=== PATIENT | male | born 1965 | race Caucasian/White ===

== ENCOUNTER → 2017-01-07 | Outpatient (CLI) | payer MEDICAID ==
[~2017-01-07] MED LIST: GADOXETATE DISODIUM 2.5 MMOL/10 ML ONE; HYDR-3240 PO; ONDA4TAB7 PO
== END | disposition home or self-care (01) ==
LOC: CFH 08:54
PROVIDERS: ATTEND Internal Medicine Gastroenterology
DX: Z12.11 Encounter for screening for malignant neoplasm of colon (principal); R93.8 Abnormal findings on diagnostic imaging of other specified body structures
CPT/HCPCS: 74183; 82565; A9581

== ENCOUNTER 2017-02-25 14:04 | Emergency (ER) | payer MEDICAID ==
[~2017-02-25] VITALS: Ht 175.3 cm; Wt 92.0 kg
[~2017-02-25 14:04] MED LIST changes: -GADOXETATE DISODIUM 2.5 MMOL/10 ML ONE
[2017-02-25] MEDS ORDERED: SODIUM CHLORIDE 0.9% 1,000 ML IV ONE (15:12)
[2017-02-25] MEDS ORDERED: FAMOTIDINE 20 MG/2 ML IVP ONE (15:30)
[2017-02-25] MEDS ORDERED: ONDANSETRON 2MG/ML, 2ML IVPush ONE (15:30)
[2017-02-25] MEDS ORDERED: SODIUM CHLORIDE 0.9% 1,000ML IVBOLUS ONE (15:30)
[2017-02-25] MEDS ORDERED: SODIUM CHLORIDE FLUSH 10ML SYR IVF ONE (15:30)
[2017-02-25 15:48] LABS: ASPARTATE AMINO TRANSFERASE 51 U/L (15-37); BLOOD UREA NITROGEN 14 mg/dL (7-18)
[2017-02-25] MEDS ORDERED: FAMOTIDINE 20 MG TABLET ONE (15:49)
[2017-02-25 16:18] LABS: HEMATOCRIT 56.8 % (39.2-51.8); HEMOGLOBIN 19.2 g/dL (13.7-18.0)
[2017-02-25] MEDS ORDERED: METO50TA82 PO (16:21)
[2017-02-25] MEDS ORDERED: ZOLP10TA PO (16:21)
[2017-02-25] MEDS ORDERED: BUSP15TA PO (16:21)
[2017-02-25] MEDS ORDERED: BUSP10TA PO (16:21)
[2017-02-25] MEDS ORDERED: LISI1TAB7 PO (16:21)
[2017-02-25] MEDS ORDERED: UNK CHOLESTEROL (16:21)
[2017-02-25 16:38] LABS: DIFF TOTAL CELLS COUNTED 100 CELL DIFF
[2017-02-25 17:53] LABS: VERIFY COUNTS? YES
[2017-02-25 18:23] VITALS: BP 119/81
[2017-02-28] MEDS ORDERED: FENO48TA5 PO (11:13)
== END 2017-02-25 18:25 | disposition home or self-care (01) ==
LOC: ED 18:19
DX: K52.9 Noninfective gastroenteritis and colitis, unspecified (principal); I95.9 Hypotension, unspecified; I10 Essential (primary) hypertension; E78.00 Pure hypercholesterolemia, unspecified
CPT/HCPCS: 36415; 80053; 80307; 81003; 82140; 83605; 83690; 85025; 85610; 85730; 93005; 96374; S0028

== ENCOUNTER 2017-03-03 07:23 | Day surgery (SDC) | payer MEDICAID ==
[2017-02-28 11:30] VITALS: BP 131/93
[~2017-03-03] VITALS: Ht 175.3 cm; Wt 93.0 kg
[~2017-03-03 07:23] MED LIST changes: +BUSP10TA PO; +BUSP15TA PO; +FENO48TA5 PO; +LISI1TAB7 PO; +METO50TA82 PO; +UNK CHOLESTEROL; +ZOLP10TA PO
[2017-03-03] MEDS ORDERED: LIDOCAINE 1%, 2ML ONE (07:55)
[2017-03-03] MEDS ORDERED: LACTATED RINGERS 1,000 ML IV SCH (07:57)
[2017-03-03] MEDS ORDERED: LIDOCAINE 1%, 2ML SQ PRN (08:00)
[2017-03-03] MEDS ORDERED: PIPERACILLIN/TAZO/PMX 3.375GM 50 ML ONE (08:23)
[2017-03-03] MEDS ORDERED: CHLORHEXIDINE GLUCONATE MOUTHWASH 0.12%, 473ML ONE (08:23)
[2017-03-03] MEDS ORDERED: MIDAZOLAM 1 MG/ML, 2ML ONE (09:44)
[2017-03-03] MEDS ORDERED: FENTANYL PF 100 MCG/2ML ONE (09:46)
[2017-03-03] MEDS ORDERED: KETAMINE 10 MG/ML, 20ML ONE (09:49)
[2017-03-03] MEDS ORDERED: PHENYLEPHRINE 10 MG/ML ONE (09:57)
[2017-03-03] MEDS ORDERED: ONDANSETRON 2MG/ML, 2ML ONE (09:57)
[2017-03-03] MEDS ORDERED: DEXAMETHASONE 4 MG/ML, 1ML ONE (09:57)
[2017-03-03] MEDS ORDERED: PROPOFOL 10 MG/ML, 20ML ONE ×2 (09:57)
[2017-03-03] MEDS ORDERED: HYDROmorphone 1 MG/ML, 1ML IV PRN (10:00)
[2017-03-03] MEDS ORDERED: OXYcodone 5 MG/5 ML ORAL.SOL UDC PO PRN (10:00)
[2017-03-03] MEDS ORDERED: ACETAMINOPHEN 325 MG TABLET PO PRN (10:00)
[2017-03-03] MEDS ORDERED: FENTANYL PF 100 MCG/2ML IV PRN (10:00)
== END 2017-03-03 13:15 ==
LOC: OUT 07:23 → MERGE 09:15 → OUT 13:15
PROVIDERS: ATTEND Internal Medicine Gastroenterology
DX: K86.2 Cyst of pancreas (principal); K44.9 Diaphragmatic hernia without obstruction or gangrene; F41.9 Anxiety disorder, unspecified; E78.00 Pure hypercholesterolemia, unspecified; I10 Essential (primary) hypertension; Z85.9 Personal history of malignant neoplasm, unspecified; Z98.890 Other specified postprocedural states; Z72.89 Other problems related to lifestyle
CPT/HCPCS: 43239; 43242; 88172; 88173; 88177; 88305; 88307; J1100; J2250; J2370; J2405; J2543; J2704; J3010; J3490; J7120

== ENCOUNTER 2017-03-05 08:49 | Inpatient (IN) | payer MEDICAID ==
[~2017-03-05] VITALS: Ht 175.3 cm; Wt 93.9 kg
[2017-03-05] MEDS ORDERED: SODIUM CHLORIDE 0.9% 1,000ML IVBOLUS ONE (09:30)
[2017-03-05] MEDS ORDERED: ONDANSETRON 2MG/ML, 2ML IVPush ONE (10:00)
[2017-03-05] MEDS ORDERED: HYDROmorphone 1 MG/ML, 1ML IVPush PRN (10:00)
[2017-03-05] MEDS ORDERED: ONDANSETRON 2MG/ML, 2ML ONE (10:07)
[2017-03-05] MEDS ORDERED: HYDROmorphone 1 MG/ML, 1ML ONE (10:07)
[2017-03-05 10:18] LABS: HEMATOCRIT 56.2 % (39.2-51.8)
[2017-03-05 10:26] LABS: ASPARTATE AMINO TRANSFERASE 37 U/L (15-37); BLOOD UREA NITROGEN 15 mg/dL (7-18)
[2017-03-05] MEDS ORDERED: LACTATED RINGERS 1,000 ML IV SCH ×2 (14:00→14:30)
[2017-03-05] MEDS ORDERED: BISACODYL 10 MG SUPP PR PRN (14:00)
[2017-03-05] MEDS ORDERED: ONDANSETRON 2MG/ML, 2ML IVPush PRN (14:00)
[2017-03-05] MEDS: ENOXAPARIN 40 MG/0.4 ML SQ SCH (14:00)
[2017-03-05 14:19] VITALS: BP 90/62
[2017-03-05] MEDS ORDERED: LACTATED RINGERS 1,000 ML IV ONE (14:30)
[2017-03-05 14:57] LABS: BLOOD UREA NITROGEN 17 mg/dL (7-18)
[2017-03-05] MEDS: HYDROmorphone 2 MG/ML, 1ML IVPush PRN ×2 (16:31→22:48)
[2017-03-05] MEDS ORDERED: OMNIPAQUE 350 MG/ML, 100ML BOTTLE ONE (17:24)
[2017-03-05] MEDS: LACTATED RINGERS 1,000 ML IV SCH ×2 (17:40→22:42)
[2017-03-05 18:27] VITALS: BP 90/64
[2017-03-05 18:29] LABS: BLOOD UREA NITROGEN 16 mg/dL (7-18)
[2017-03-05] MEDS: BUSPIRONE 10 MG TABLET PO SCH (22:43)
[2017-03-05] MEDS: ZOLPIDEM 10MG TABLET PO PRN (22:48)
[2017-03-06 00:11] VITALS: BP 84/59
[2017-03-06] MEDS: HYDROmorphone 2 MG/ML, 1ML IVPush PRN ×4 (02:38→23:46)
[2017-03-06] MEDS: LACTATED RINGERS 1,000 ML IV SCH ×5 (02:41→23:54)
[2017-03-06 05:28] LABS: HEMATOCRIT 46.7 % (39.2-51.8); WHITE BLOOD COUNT 11.7 x10^3/uL (3.4-10)
[2017-03-06 05:38] LABS: ASPARTATE AMINO TRANSFERASE 18 U/L (15-37); BLOOD UREA NITROGEN 17 mg/dL (7-18)
[2017-03-06 08:05] VITALS: BP 99/67
[2017-03-06] MEDS: BUSPIRONE 10 MG TABLET PO SCH ×2 (08:42→20:42)
[2017-03-06 13:03] VITALS: BP 119/84
[2017-03-06] MEDS: ENOXAPARIN 40 MG/0.4 ML SQ SCH (16:00)
[2017-03-06] MEDS ORDERED: PNEUMOCOCCAL 23 VACCINE IM-VACC ONE (18:30)
[2017-03-06 18:49] VITALS: BP 132/94
[2017-03-06] MEDS: ZOLPIDEM 10MG TABLET PO PRN (23:47)
[2017-03-07 01:56] VITALS: BP 122/87
[2017-03-07 05:41] LABS: HEMATOCRIT 42.9 % (39.2-51.8); HEMOGLOBIN 14.4 g/dL (13.7-18.0); WHITE BLOOD COUNT 6.3 x10^3/uL (3.4-10)
[2017-03-07 05:52] LABS: ASPARTATE AMINO TRANSFERASE 16 U/L (15-37); BLOOD UREA NITROGEN 13 mg/dL (7-18)
[2017-03-07 07:55] VITALS: BP 123/87
[2017-03-07] MEDS: BUSPIRONE 10 MG TABLET PO SCH ×2 (08:27→19:37)
[2017-03-07 12:00] VITALS: BP 124/80
[2017-03-07] MEDS: HYDROmorphone 2 MG/ML, 1ML IVPush PRN ×2 (12:34→21:13)
[2017-03-07] MEDS: LACTATED RINGERS 1,000 ML IV SCH ×2 (15:25→21:13)
[2017-03-07] MEDS: ENOXAPARIN 40 MG/0.4 ML SQ SCH (15:25)
[2017-03-07 19:14] VITALS: BP 150/104
[2017-03-07] MEDS: hydrALAzine 20 MG/ML, 1ML IVPush PRN (19:37)
[2017-03-07] MEDS: ZOLPIDEM 10MG TABLET PO PRN (21:13)
[2017-03-08 02:36] VITALS: BP 125/80
[2017-03-08] MEDS: LACTATED RINGERS 1,000 ML IV SCH ×3 (03:30→18:34)
[2017-03-08 05:08] LABS: HEMATOCRIT 46.4 % (39.2-51.8); HEMOGLOBIN 15.9 g/dL (13.7-18.0)
[2017-03-08 05:13] LABS: BLOOD UREA NITROGEN 11 mg/dL (7-18)
[2017-03-08 05:17] LABS: ASPARTATE AMINO TRANSFERASE 53 U/L (15-37)
[2017-03-08 07:25] VITALS: BP 122/91
[2017-03-08] MEDS: BUSPIRONE 10 MG TABLET PO SCH ×2 (08:44→20:53)
[2017-03-08] MEDS: ACETAMINOPHEN 325 MG TABLET PO PRN ×2 (11:45→18:34)
[2017-03-08 12:30] VITALS: BP 133/96
[2017-03-08] MEDS: ENOXAPARIN 40 MG/0.4 ML SQ SCH (15:52)
[2017-03-08 19:53] VITALS: BP 142/99
[2017-03-08] MEDS: ZOLPIDEM 10MG TABLET PO PRN (20:53)
[2017-03-09] MEDS: LACTATED RINGERS 1,000 ML IV SCH ×3 (00:30→16:00)
[2017-03-09 07:00] VITALS: BP 145/96
[2017-03-09 08:19] LABS: ASPARTATE AMINO TRANSFERASE 46 U/L (15-37); BLOOD UREA NITROGEN 8 mg/dL (7-18)
[2017-03-09 08:21] LABS: HEMATOCRIT 43.8 % (39.2-51.8); HEMOGLOBIN 14.9 g/dL (13.7-18.0); WHITE BLOOD COUNT 4.6 x10^3/uL (3.4-10)
[2017-03-09] MEDS: BUSPIRONE 10 MG TABLET PO SCH (08:45)
[2017-03-09] MEDS: ACETAMINOPHEN 325 MG TABLET PO PRN (12:10)
[2017-03-09 14:22] VITALS: BP 155/105
[2017-03-09] MEDS: hydrALAzine 20 MG/ML, 1ML IVPush PRN (15:48)
[2017-03-09] MEDS: ENOXAPARIN 40 MG/0.4 ML SQ SCH (16:00)
== END 2017-03-09 17:30 | disposition home or self-care (01) | DRG 439 ==
LOC: ED 09:26 → EDIP 12:06 → 3NE 13:07
DX: K85.90 Acute pancreatitis without necrosis or infection, unspecified (principal); N17.9 Acute kidney failure, unspecified; R65.10 Systemic inflammatory response syndrome (SIRS) of non-infectious origin without acute organ dysfunction; E87.1 Hypo-osmolality and hyponatremia; K86.3 Pseudocyst of pancreas; E78.2 Mixed hyperlipidemia; E86.0 Dehydration; I10 Essential (primary) hypertension; G47.30 Sleep apnea, unspecified; K21.9 Gastro-esophageal reflux disease without esophagitis; K44.9 Diaphragmatic hernia without obstruction or gangrene; Z72.0 Tobacco use; Z82.5 Family history of asthma and other chronic lower respiratory diseases; Z87.19 Personal history of other diseases of the digestive system; F32.9 Major depressive disorder, single episode, unspecified
CPT/HCPCS: 36415; 74177; 80048; 80053; 81001; 82247; 82248; 83605; 83690; 83735; 84100; 84478; 85018; 85025; 87040; 90732; 96361; 96374; 96375; J1170; J1650; J2405; Q9967; J0360; J7030; J7120

== ENCOUNTER 2017-03-18 09:52 | Inpatient (IN) | payer MEDICAID ==
[~2017-03-18] VITALS: Ht 175.3 cm; Wt 10.6 kg
[2017-03-18] MEDS ORDERED: SODIUM CHLORIDE 0.9% 1,000 ML IV ONE ×2 (10:27→12:42)
[2017-03-18] MEDS ORDERED: ONDANSETRON 2MG/ML, 2ML IVPush ONE (10:30)
[2017-03-18] MEDS ORDERED: FAMOTIDINE 20 MG/2 ML IVP ONE (10:30)
[2017-03-18] MEDS ORDERED: HYDROmorphone 1 MG/ML, 1ML IVPush PRN (10:30)
[2017-03-18] MEDS ORDERED: SODIUM CHLORIDE FLUSH 10ML SYR IVF ONE (10:30)
[2017-03-18] MEDS ORDERED: SODIUM CHLORIDE 0.9% 1,000ML IVBOLUS ONE (10:30)
[2017-03-18] MEDS ORDERED: ONDANSETRON 2MG/ML, 2ML ONE (10:45)
[2017-03-18] MEDS ORDERED: FAMOTIDINE 20 MG/2 ML ONE (10:45)
[2017-03-18] MEDS ORDERED: HYDROmorphone 1 MG/ML, 1ML ONE (10:45)
[2017-03-18 10:52] LABS: HEMATOCRIT 53.7 % (39.2-51.8); WHITE BLOOD COUNT 9.6 x10^3/uL (3.4-10)
[2017-03-18 11:11] LABS: BLOOD UREA NITROGEN 13 mg/dL (7-18)
[2017-03-18 11:16] LABS: ASPARTATE AMINO TRANSFERASE 95 U/L (15-37)
[2017-03-18] MEDS ORDERED: SODIUM CHLORIDE FLUSH 10ML SYR IVF PRN (13:00)
[2017-03-18] MEDS: SODIUM CHLORIDE 0.9% 1,000 ML IV SCH ×2 (14:30→20:53)
[2017-03-18] MEDS ORDERED: GUAIFENESIN/DM 200-20MG, 10ML UDC PO PRN (14:30)
[2017-03-18] MEDS ORDERED: PROMETHAZINE 25 MG/ML, 1ML IM PRN (14:30)
[2017-03-18] MEDS ORDERED: LABETALOL 5MG/ML, 20ML IVPush PRN (14:30)
[2017-03-18] MEDS ORDERED: POLYETHYLENE GLYCOL 17 GM PACKET PO PRN (14:30)
[2017-03-18] MEDS ORDERED: ONDANSETRON 2MG/ML, 2ML IVPush PRN (14:30)
[2017-03-18] MEDS ORDERED: MORPHINE SULFATE 4 MG/ML, 1ML IVPush PRN (14:30)
[2017-03-18] MEDS ORDERED: morphine SULFATE 10 MG/ML, 1ML IVPush PRN (14:30)
[2017-03-18] MEDS ORDERED: ONDANSETRON ODT 4 MG PO PRN (14:30)
[2017-03-18 18:30] VITALS: BP 128/95
[2017-03-18] MEDS: HYDROmorphone 1 MG/ML, 1ML IV PRN (20:53)
[2017-03-18] MEDS: BUSPIRONE 10 MG TABLET PO SCH (20:53)
[2017-03-18] MEDS: ZOLPIDEM 10MG TABLET PO PRN (20:54)
[2017-03-19 01:28] VITALS: BP 111/76
[2017-03-19] MEDS: SODIUM CHLORIDE 0.9% 1,000 ML IV SCH ×3 (05:47→20:45)
[2017-03-19 05:58] LABS: BLOOD UREA NITROGEN 13 mg/dL (7-18)
[2017-03-19 06:00] LABS: HEMATOCRIT 47.7 % (39.2-51.8); HEMOGLOBIN 16.3 g/dL (13.7-18.0); WHITE BLOOD COUNT 10.4 x10^3/uL (3.4-10)
[2017-03-19 06:02] LABS: ASPARTATE AMINO TRANSFERASE 66 U/L (15-37)
[2017-03-19] MEDS: HYDROmorphone 1 MG/ML, 1ML IV PRN ×3 (06:26→20:37)
[2017-03-19 06:58] VITALS: BP 113/78
[2017-03-19] MEDS: BUSPIRONE 10 MG TABLET PO SCH ×2 (09:00→20:38)
[2017-03-19] MEDS: SENNA/DOCUSATE TABLET PO SCH (09:28)
[2017-03-19] MEDS: METOPROLOL TARTRATE 50 MG TABLET PO SCH (09:29)
[2017-03-19 14:02] VITALS: BP 111/76
[2017-03-19 19:41] VITALS: BP 111/83
[2017-03-19] MEDS: ZOLPIDEM 10MG TABLET PO PRN (20:37)
[2017-03-20 02:15] VITALS: BP 142/82
[2017-03-20] MEDS: SODIUM CHLORIDE 0.9% 1,000 ML IV SCH ×2 (03:17→10:08)
[2017-03-20 05:31] LABS: BLOOD UREA NITROGEN 9 mg/dL (7-18)
[2017-03-20 05:39] LABS: ASPARTATE AMINO TRANSFERASE 38 U/L (15-37)
[2017-03-20 06:42] VITALS: BP 119/88
[2017-03-20] MEDS: BUSPIRONE 10 MG TABLET PO SCH ×2 (07:33→20:37)
[2017-03-20] MEDS: HYDROmorphone 1 MG/ML, 1ML IV PRN ×3 (07:38→20:28)
[2017-03-20] MEDS: METOPROLOL TARTRATE 50 MG TABLET PO SCH (07:38)
[2017-03-20] MEDS: SENNA/DOCUSATE TABLET PO SCH (07:39)
[2017-03-20 14:01] VITALS: BP 133/93
[2017-03-20 20:14] VITALS: BP 126/89
[2017-03-20] MEDS: ZOLPIDEM 10MG TABLET PO PRN (20:34)
[2017-03-21 01:41] VITALS: BP 140/88
[2017-03-21] MEDS: HYDROmorphone 1 MG/ML, 1ML IV PRN (02:36)
[2017-03-21 07:13] VITALS: BP 120/87
[2017-03-21] MEDS: BUSPIRONE 10 MG TABLET PO SCH ×2 (09:00→20:46)
[2017-03-21] MEDS: SENNA/DOCUSATE TABLET PO SCH (09:00)
[2017-03-21] MEDS: METOPROLOL TARTRATE 50 MG TABLET PO SCH (09:56)
[2017-03-21] MEDS ORDERED: OXYcodone IR 5MG TABLET PO PRN (12:00)
[2017-03-21] MEDS: OXYcodone IR 5MG TABLET PO PRN ×2 (12:38→16:55)
[2017-03-21] MEDS: SODIUM CHLORIDE 0.9% 1,000 ML IV SCH (12:39)
[2017-03-21 13:34] VITALS: BP 126/89
[2017-03-21 19:20] VITALS: BP 147/107
[2017-03-21 19:32] VITALS: BP 156/99
[2017-03-21] MEDS: ZOLPIDEM 10MG TABLET PO PRN (20:44)
[2017-03-22] MEDS: SODIUM CHLORIDE 0.9% 1,000 ML IV SCH ×2 (01:42→14:57)
[2017-03-22 01:43] VITALS: BP 130/89
[2017-03-22] MEDS: OXYcodone IR 5MG TABLET PO PRN ×4 (01:51→20:16)
[2017-03-22 05:10] LABS: HEMATOCRIT 42.4 % (39.2-51.8); HEMOGLOBIN 14.5 g/dL (13.7-18.0); WHITE BLOOD COUNT 12.1 x10^3/uL (3.4-10)
[2017-03-22 05:19] LABS: BLOOD UREA NITROGEN 7 mg/dL (7-18)
[2017-03-22 05:23] LABS: ASPARTATE AMINO TRANSFERASE 56 U/L (15-37)
[2017-03-22 07:07] VITALS: BP 134/95
[2017-03-22] MEDS ORDERED: ENOXAPARIN 40 MG/0.4 ML SQ SCH (08:00)
[2017-03-22] MEDS: METOPROLOL TARTRATE 50 MG TABLET PO SCH ×2 (08:54→20:08)
[2017-03-22] MEDS: BUSPIRONE 10 MG TABLET PO SCH ×2 (08:55→20:08)
[2017-03-22] MEDS: SENNA/DOCUSATE TABLET PO SCH (08:56)
[2017-03-22 14:00] VITALS: BP 137/94
[2017-03-22] MEDS ORDERED: OMNIPAQUE 350 MG/ML, 100ML BOTTLE ONE (14:34)
[2017-03-22] MEDS ORDERED: ENOXAPARIN 100 MG/ML SQ SCH (17:00)
[2017-03-22 19:49] VITALS: BP 156/95
[2017-03-22] MEDS: ENOXAPARIN 100 MG/ML SQ SCH (20:08)
[2017-03-22] MEDS: ZOLPIDEM 10MG TABLET PO PRN (20:47)
[2017-03-23 02:04] VITALS: BP 127/92
[2017-03-23] MEDS: SODIUM CHLORIDE 0.9% 1,000 ML IV SCH ×3 (03:31→23:25)
[2017-03-23] MEDS: OXYcodone IR 5MG TABLET PO PRN ×2 (04:51→12:09)
[2017-03-23 05:40] LABS: HEMATOCRIT 47.2 % (39.2-51.8); HEMOGLOBIN 16.1 g/dL (13.7-18.0); WHITE BLOOD COUNT 14.1 x10^3/uL (3.4-10)
[2017-03-23 06:07] LABS: ASPARTATE AMINO TRANSFERASE 69 U/L (15-37); BLOOD UREA NITROGEN 7 mg/dL (7-18)
[2017-03-23 06:37] VITALS: BP 135/87
[2017-03-23] MEDS: BUSPIRONE 10 MG TABLET PO SCH ×3 (08:52→21:14)
[2017-03-23] MEDS: SENNA/DOCUSATE TABLET PO SCH (08:52)
[2017-03-23] MEDS: ENOXAPARIN 100 MG/ML SQ SCH ×2 (08:52→21:14)
[2017-03-23] MEDS: METOPROLOL TARTRATE 50 MG TABLET PO SCH ×2 (08:52→21:15)
[2017-03-23] MEDS ORDERED: PANT40GR PO (12:03)
[2017-03-23] MEDS ORDERED: ATOR20TA9 PO (12:03)
[2017-03-23] MEDS ORDERED: LIDOCAINE 1%, 20ML ONE (12:24)
[2017-03-23 13:24] LABS: CYTOLOGY BODY FLUID RECD INTO PATHOLOGY; CYTOLOGY BODY FLUID SOURCE SYNOVIAL FLUID
[2017-03-23 15:12] LABS: SYN DILUTIN 1; SYN WBC SQ COUNTED 1
[2017-03-23 18:36] VITALS: BP 135/86
[2017-03-23] MEDS ORDERED: VANCOMYCIN PER PHARMACY MC PRN (20:00)
[2017-03-23] MEDS ORDERED: PHARMACOKINETIC CONSULTATION MC ONE (20:30)
[2017-03-23] MEDS ORDERED: PHARMACOKINETIC MONITORING MC PRN (20:30)
[2017-03-23] MEDS: AMPICILLIN/SULBACTAM 3 GM in SODIUM CHLORIDE 0.9% 100 ML IV SCH (21:14)
[2017-03-23] MEDS: ZOLPIDEM 10MG TABLET PO PRN (22:23)
[2017-03-23] MEDS: VANCOMYCIN 1,800 MG in SODIUM CHLORIDE 0.9% 250 ML IV SCH (23:26)
[2017-03-24] MEDS: OXYcodone IR 5MG TABLET PO PRN (02:00)
[2017-03-24 02:11] VITALS: BP 127/67
[2017-03-24] MEDS: AMPICILLIN/SULBACTAM 3 GM in SODIUM CHLORIDE 0.9% 100 ML IV SCH ×3 (03:02→17:57)
[2017-03-24 05:06] LABS: HEMATOCRIT 40.8 % (39.2-51.8); HEMOGLOBIN 13.9 g/dL (13.7-18.0); WHITE BLOOD COUNT 11.4 x10^3/uL (3.4-10)
[2017-03-24 05:22] LABS: ASPARTATE AMINO TRANSFERASE 74 U/L (15-37); BLOOD UREA NITROGEN 7 mg/dL (7-18)
[2017-03-24 07:14] VITALS: BP 128/85
[2017-03-24] MEDS ORDERED: MAGNESIUM SULFATE PMX 2GM/50ML 50 ML IV ONE (07:30)
[2017-03-24] MEDS: BUSPIRONE 10 MG TABLET PO SCH ×3 (09:00→21:00)
[2017-03-24] MEDS: SODIUM CHLORIDE 0.9% 1,000 ML IV SCH (10:32)
[2017-03-24] MEDS: ENOXAPARIN 100 MG/ML SQ SCH ×2 (10:36→20:23)
[2017-03-24] MEDS: SENNA/DOCUSATE TABLET PO SCH (10:36)
[2017-03-24] MEDS: METOPROLOL TARTRATE 50 MG TABLET PO SCH ×2 (10:36→20:22)
[2017-03-24] MEDS: VANCOMYCIN 1,800 MG in SODIUM CHLORIDE 0.9% 250 ML IV SCH (13:50)
[2017-03-24 15:00] VITALS: BP 122/87
[2017-03-24] MEDS ORDERED: WARFARIN 7.5 MG TABLET PO-COUM ONE (18:00)
[2017-03-24 20:03] VITALS: BP 128/90
[2017-03-25] MEDS: AMPICILLIN/SULBACTAM 3 GM in SODIUM CHLORIDE 0.9% 100 ML IV SCH ×2 (00:17→09:16)
[2017-03-25] MEDS: SODIUM CHLORIDE 0.9% 1,000 ML IV SCH ×4 (00:19→23:53)
[2017-03-25 02:50] VITALS: BP 131/88
[2017-03-25 05:55] LABS: HEMATOCRIT 40.5 % (39.2-51.8); HEMOGLOBIN 13.7 g/dL (13.7-18.0)
[2017-03-25 06:08] LABS: ASPARTATE AMINO TRANSFERASE 58 U/L (15-37); BLOOD UREA NITROGEN 8 mg/dL (7-18)
[2017-03-25 06:24] VITALS: BP 131/90
[2017-03-25] MEDS ORDERED: ERGOCALCIFEROL 50,000 UNIT CAPSULE PO SCH (07:30)
[2017-03-25] MEDS: BUSPIRONE 10 MG TABLET PO SCH ×2 (09:00→20:33)
[2017-03-25] MEDS: METOPROLOL TARTRATE 50 MG TABLET PO SCH ×2 (09:14→20:32)
[2017-03-25] MEDS: SENNA/DOCUSATE TABLET PO SCH (09:15)
[2017-03-25] MEDS: ENOXAPARIN 100 MG/ML SQ SCH ×2 (09:16→20:33)
[2017-03-25] MEDS: VANCOMYCIN 1,800 MG in SODIUM CHLORIDE 0.9% 250 ML IV SCH (10:11)
[2017-03-25] MEDS ORDERED: WARFARIN MODERAT DOSE PROTOCOL XX SCH (12:00)
[2017-03-25 12:08] VITALS: BP 135/93
[2017-03-25 16:14] LABS: HIV 1&2 ANTIBODY SCREEN Nonreactive (Nonreactive); HIV-1 p24 ANTIGEN Nonreactive (Nonreactive)
[2017-03-25] MEDS: ONDANSETRON 2MG/ML, 2ML IVPush PRN (17:18)
[2017-03-25] MEDS ORDERED: WARFARIN 7.5 MG TABLET PO-COUM ONE (18:00)
[2017-03-25 19:13] VITALS: BP 136/93
[2017-03-25] MEDS: ZOLPIDEM 10MG TABLET PO PRN (20:36)
[2017-03-25] MEDS: OXYcodone IR 5MG TABLET PO PRN (20:36)
[2017-03-26 01:42] VITALS: BP 130/86
[2017-03-26 05:47] LABS: ASPARTATE AMINO TRANSFERASE 57 U/L (15-37); BLOOD UREA NITROGEN 7 mg/dL (7-18)
[2017-03-26 05:55] LABS: HEMATOCRIT 42.5 % (39.2-51.8); HEMOGLOBIN 14.4 g/dL (13.7-18.0); WHITE BLOOD COUNT 3.9 x10^3/uL (3.4-10)
[2017-03-26] MEDS: SODIUM CHLORIDE 0.9% 1,000 ML IV SCH ×3 (06:04→17:36)
[2017-03-26 06:27] VITALS: BP 124/85
[2017-03-26] MEDS: BUSPIRONE 10 MG TABLET PO SCH ×2 (09:00→21:00)
[2017-03-26] MEDS: METOPROLOL TARTRATE 50 MG TABLET PO SCH ×2 (09:17→21:41)
[2017-03-26] MEDS: SENNA/DOCUSATE TABLET PO SCH (09:18)
[2017-03-26] MEDS: ENOXAPARIN 100 MG/ML SQ SCH ×2 (09:18→21:41)
[2017-03-26] MEDS: WARFARIN MODERAT DOSE PROTOCOL XX SCH (12:00)
[2017-03-26 13:05] VITALS: BP 132/89
[2017-03-26] MEDS ORDERED: WARFARIN 5 MG TABLET PO-COUM SCH (18:00)
[2017-03-26 19:37] VITALS: BP 123/83
[2017-03-26] MEDS: OXYcodone IR 5MG TABLET PO PRN (21:42)
[2017-03-26] MEDS: ZOLPIDEM 10MG TABLET PO PRN (21:42)
[2017-03-26] MEDS ORDERED: MAALOX/HYOSCYAMINE/LIDOCAINE 45 ML BTL PO ONE (22:00)
[2017-03-27] MEDS: SODIUM CHLORIDE 0.9% 1,000 ML IV SCH ×4 (00:34→20:14)
[2017-03-27 01:21] VITALS: BP 133/91
[2017-03-27 05:12] LABS: HEMATOCRIT 43.6 % (39.2-51.8); HEMOGLOBIN 14.4 g/dL (13.7-18.0); WHITE BLOOD COUNT 7.7 x10^3/uL (3.4-10)
[2017-03-27 05:33] LABS: ASPARTATE AMINO TRANSFERASE 51 U/L (15-37); BLOOD UREA NITROGEN 8 mg/dL (7-18)
[2017-03-27 07:53] VITALS: BP 135/96
[2017-03-27] MEDS: ENOXAPARIN 100 MG/ML SQ SCH ×2 (08:53→20:15)
[2017-03-27] MEDS: BUSPIRONE 10 MG TABLET PO SCH ×2 (08:53→20:14)
[2017-03-27] MEDS: METOPROLOL TARTRATE 50 MG TABLET PO SCH ×2 (08:53→20:14)
[2017-03-27] MEDS: SENNA/DOCUSATE TABLET PO SCH (08:54)
[2017-03-27] MEDS: WARFARIN MODERAT DOSE PROTOCOL XX SCH (12:17)
[2017-03-27 14:27] VITALS: BP 138/99
[2017-03-27] MEDS ORDERED: WARFARIN 7.5 MG TABLET PO-COUM SCH (18:00)
[2017-03-27] MEDS: ONDANSETRON 2MG/ML, 2ML IVPush PRN (20:14)
[2017-03-27] MEDS: ZOLPIDEM 10MG TABLET PO PRN (20:14)
[2017-03-27 20:30] VITALS: BP 137/94
[2017-03-28 03:10] VITALS: BP 92/61
[2017-03-28 05:21] LABS: HEMATOCRIT 38.9 % (39.2-51.8); WHITE BLOOD COUNT 6.2 x10^3/uL (3.4-10)
[2017-03-28 05:27] LABS: BLOOD UREA NITROGEN 9 mg/dL (7-18)
[2017-03-28 08:00] VITALS: BP 129/87
[2017-03-28] MEDS ORDERED: ERGO500017 PO (08:08)
[2017-03-28] MEDS ORDERED: PRED20TA PO (08:08)
[2017-03-28] MEDS ORDERED: WARF2TAB PO (08:16)
[2017-03-28] MEDS: SENNA/DOCUSATE TABLET PO SCH (09:00)
[2017-03-28] MEDS: METOPROLOL TARTRATE 50 MG TABLET PO SCH (09:36)
[2017-03-28] MEDS: ENOXAPARIN 100 MG/ML SQ SCH (09:36)
[2017-03-28] MEDS: BUSPIRONE 10 MG TABLET PO SCH (09:37)
[2017-03-28] MEDS: SODIUM CHLORIDE 0.9% 1,000 ML IV SCH ×2 (11:20→16:34)
[2017-03-28] MEDS: WARFARIN MODERAT DOSE PROTOCOL XX SCH (12:00)
[2017-03-28] MEDS ORDERED: WARFARIN 5 MG TABLET PO-COUM ONE (18:00)
[2017-03-29 11:06] LABS: COMPLEMENT C3 141 mg/dL (82-167); COMPLEMENT C4 29 mg/dL (14-44); INTERMYOFIBRILLAR AB Negative (Neg:<1:20); MITOCHONDRIAL (M2) AB 3.9 Units (0.0-20.0); PARIETAL CELL AB 7.7 Units (0.0-20.0); RA LATEX TURBIDITY <10.0 IU/mL (0.0-13.9); SARCOLEMMA AB Negative (Neg:<1:20); STRIATION AB Negative (Neg:<1:40); THYROID PEROXIDASE (TPO) AB 12 IU/mL (0-34)
[2017-03-29 15:56] LABS: RHEUMATOID FACTOR SCREEN NEGATIVE (NEGATIVE)
== END 2017-03-28 18:01 | disposition home or self-care (01) | DRG 438 ==
LOC: ED 11:43 → EDIP 12:42 → 3NE 13:30
PROVIDERS: ADMIT Hospitalist; ATTEND Family Medicine
DX: K86.3 Pseudocyst of pancreas (principal); K85.90 Acute pancreatitis without necrosis or infection, unspecified; J90 Pleural effusion, not elsewhere classified; K74.60 Unspecified cirrhosis of liver; E87.1 Hypo-osmolality and hyponatremia; Z68.1 Body mass index [BMI] 19.9 or less, adult; D64.9 Anemia, unspecified; I10 Essential (primary) hypertension; E55.9 Vitamin D deficiency, unspecified; E74.39 Other disorders of intestinal carbohydrate absorption; E78.00 Pure hypercholesterolemia, unspecified; K59.00 Constipation, unspecified; K76.0 Fatty (change of) liver, not elsewhere classified; M17.11 Unilateral primary osteoarthritis, right knee; R62.7 Adult failure to thrive; Z72.0 Tobacco use; Z79.01 Long term (current) use of anticoagulants; Z82.5 Family history of asthma and other chronic lower respiratory diseases; Z87.19 Personal history of other diseases of the digestive system; R63.4 Abnormal weight loss
CPT/HCPCS: 20611; 36415; 74177; 76700; 76942; 80048; 80053; 80061; 80202; 81001; 82010; 82040; 82306; 82378; 83036; 83516; 83690; 83735; 84439; 85025; 85610; 85810; 86038; 86160; 86225; 86235; 86255; 86256; 86301; 86376; 86430; 86431; 86703; 87040; 87070; 87075; 87205; 87491; 87591; 87899; 88112; 88305; 89050; 89060; 93005; 96361; 96374; 96375; J0295; J1170; J1650; J2405; J3370; J3490; Q9967; G0435; J3475; J7030; J7050; J7512; S0028

== ENCOUNTER 2017-04-01 23:27 | Emergency (ER) | payer MEDICAID ==
[~2017-04-01] VITALS: Ht 175.3 cm; Wt 96.0 kg
[~2017-04-01 23:27] MED LIST changes: +ATOR20TA9 PO; +ERGO500017 PO; +PANT40GR PO; +PRED20TA PO; +WARF2TAB PO
[2017-04-02 00:27] LABS: HEMATOCRIT 46.9 % (39.2-51.8); HEMOGLOBIN 15.5 g/dL (13.7-18.0); WHITE BLOOD COUNT 6.4 x10^3/uL (3.4-10)
[2017-04-02 00:28] LABS: ASPARTATE AMINO TRANSFERASE 50 U/L (15-37); BLOOD UREA NITROGEN 16 mg/dL (7-18)
[2017-04-02 00:38] LABS: IS PT STATUS REG ER OR PRE ER? YES
[2017-04-02 01:20] VITALS: BP 144/95
== END 2017-04-02 01:43 | disposition home or self-care (01) ==
LOC: ED 23:35
DX: R10.13 Epigastric pain (principal); I10 Essential (primary) hypertension; M79.1 Myalgia; E78.00 Pure hypercholesterolemia, unspecified; E78.5 Hyperlipidemia, unspecified; Z79.01 Long term (current) use of anticoagulants
CPT/HCPCS: 36415; 80053; 83690; 83735; 84484; 85025; 85610; 85730; 93005; 99285

== ENCOUNTER 2017-07-02 21:17 | Emergency (ER) | payer MEDICAID ==
[~2017-07-02] VITALS: Ht 175.3 cm; Wt 95.2 kg
[2017-07-02] MEDS ORDERED: SODIUM CHLORIDE FLUSH 10ML SYR IVF ONE (23:00)
[2017-07-02] MEDS ORDERED: ONDANSETRON 2MG/ML, 2ML IVPush ONE (23:00)
[2017-07-02] MEDS ORDERED: MAALOX/HYOSCYAMINE/LIDOCAINE 45 ML BTL PO ONE (23:00)
[2017-07-02] MEDS ORDERED: HYDROmorphone 1 MG/ML, 1ML IVPush PRN (23:00)
[2017-07-02] MEDS ORDERED: FAMOTIDINE 20 MG/2 ML IVP ONE (23:00)
[2017-07-02] MEDS ORDERED: SODIUM CHLORIDE 0.9% 1,000ML IVBOLUS ONE (23:00)
[2017-07-02] MEDS ORDERED: ONDANSETRON 2MG/ML, 2ML ONE (23:19)
[2017-07-02] MEDS ORDERED: MAALOX/HYOSCYAMINE/LIDOCAINE 45 ML BTL ONE (23:19)
[2017-07-02] MEDS ORDERED: FAMOTIDINE 20 MG/2 ML ONE (23:19)
[2017-07-02] MEDS ORDERED: HYDROmorphone 2 MG/ML, 1ML ONE (23:19)
[2017-07-03 00:11] VITALS: BP 108/84
== END 2017-07-03 01:04 | disposition home or self-care (01) ==
LOC: ED 23:31
DX: K86.1 Other chronic pancreatitis (principal); I10 Essential (primary) hypertension; E78.5 Hyperlipidemia, unspecified
CPT/HCPCS: 96361; 96374; 96375; 99284; J1170; J2405; J7030; S0028

== ENCOUNTER 2017-07-16 22:26 | Emergency (ER) | payer MEDICAID ==
[~2017-07-16] VITALS: Ht 170.2 cm; Wt 90.0 kg
[2017-07-16] MEDS ORDERED: HYDROmorphone 2 MG/ML, 1ML ONE (23:18)
[2017-07-16] MEDS ORDERED: ONDANSETRON 2MG/ML, 2ML ONE (23:18)
[2017-07-16] MEDS ORDERED: PROMETHAZINE 25 MG/ML, 1ML ONE (23:19)
[2017-07-16 23:28] LABS: BASOPHILS # (AUTO) 0.08 x10^3/uL (0-0.1); BASOPHILS % (AUTO) 1 % (0-1); EOSINOPHILS # (AUTO) 0.05 x10^3/uL (0-0.4); EOSINOPHILS % (AUTO) 1 % (1-7); LYMPHOCYTES # (AUTO) 1.94 x10^3/uL (1-3.4); LYMPHOCYTES % (AUTO) 20 % (22-44); MD NO; MEAN CORPUSCULAR HEMOGLOBIN 30.7 pg (27.5-34.5); MEAN CORPUSCULAR HGB CONC 34.1 g/dL (33.2-36.2); MEAN PLATELET VOLUME 8.8 fL (7.4-10.4); MONOCYTES # (AUTO) 0.62 x10^3/uL (0.2-0.8); MONOCYTES % (AUTO) 6 % (2-9); NEUTROPHILS # (AUTO) 7.22 x10^3/uL (1.8-6.8); NEUTROPHILS % (AUTO) 73 % (42-75); PLATELET COUNT 227 x10^3/uL (130-400); RED BLOOD COUNT 6.04 x10^6/uL (4.38-5.82); RED CELL DISTRIBUTION WIDTH 13.5 % (9.4-14.8)
[2017-07-16] MEDS ORDERED: SODIUM CHLORIDE FLUSH 10ML SYR IVF ONE (23:30)
[2017-07-16] MEDS ORDERED: ONDANSETRON 2MG/ML, 2ML IVPush ONE (23:30)
[2017-07-16] MEDS ORDERED: PROMETHAZINE 25 MG/ML, 1ML IM ONE (23:30)
[2017-07-16] MEDS ORDERED: SODIUM CHLORIDE 0.9% 1,000ML IVBOLUS ONE (23:30)
[2017-07-16 23:37] LABS: INTERNATIONAL NORMALIZED RATIO 2.54 (0.93-1.1); PROTHROMBIN TIME 25.9 Seconds (9.6-11.5)
[2017-07-16] MEDS: HYDROmorphone 1 MG/ML, 1ML IVPush PRN ×2 (23:38→23:50)
[2017-07-16 23:40] LABS: ALANINE AMINOTRANSFERASE 49 U/L (12-78); ANION GAP 12 mmol/L (5-15); CALCIUM 9.2 mg/dL (8.5-10.1); CHLORIDE 101 mmol/L (98-107); CREATININE 1.27 mg/dL (0.7-1.3)
[2017-07-16 23:44] LABS: ALKALINE PHOSPHATASE 80 U/L (45-117); BILIRUBIN,TOTAL 1.2 mg/dL (0.2-1.0); TROPONIN I < 0.015 ng/mL (0.000-0.045)
[2017-07-17 01:25] VITALS: BP 148/82
[2017-07-17 01:53] LABS: MICROSCOPIC INDICATED
[2017-07-17 01:55] LABS: CULTURE INDICATED? NO
[2017-07-17] MEDS ORDERED: WARF6TAB7 PO (18:52)
== END 2017-07-17 01:33 | disposition home or self-care (01) ==
LOC: ED 23:59
DX: K29.00 Acute gastritis without bleeding (principal); I10 Essential (primary) hypertension; E78.5 Hyperlipidemia, unspecified
CPT/HCPCS: 36415; 80053; 81001; 83690; 84484; 85025; 85610; 85730; 93005; 96361; 96372; 96374; 96375; 99285; J1170; J2405; J2550; J7030

== ENCOUNTER 2017-07-17 14:45 | Inpatient (IN) | payer MEDICAID ==
[~2017-07-17] VITALS: Ht 175.3 cm; Wt 100.0 kg
[2017-07-17] MEDS ORDERED: SODIUM CHLORIDE 0.9% 1,000ML IVBOLUS ONE (16:30)
[2017-07-17] MEDS ORDERED: SODIUM CHLORIDE FLUSH 10ML SYR IVF ONE (16:30)
[2017-07-17 16:44] LABS: MEAN CORPUSCULAR HEMOGLOBIN 30.7 pg (27.5-34.5); MEAN CORPUSCULAR VOLUME 90.4 fL (81-97); MEAN PLATELET VOLUME 9.1 fL (7.4-10.4); PLATELET COUNT 190 x10^3/uL (130-400); RED BLOOD COUNT 6.05 x10^6/uL (4.38-5.82)
[2017-07-17 16:54] LABS: ALANINE AMINOTRANSFERASE 61 U/L (12-78); ALBUMIN 3.4 g/dL (3.4-5.0); ANION GAP 10 mmol/L (5-15); CALCIUM 8.8 mg/dL (8.5-10.1); CHLORIDE 102 mmol/L (98-107); CREATININE 1.24 mg/dL (0.7-1.3)
[2017-07-17 16:57] LABS: ALKALINE PHOSPHATASE 81 U/L (45-117); BILIRUBIN,TOTAL 2.6 mg/dL (0.2-1.0); TOTAL PROTEIN 7.4 g/dL (6.4-8.2)
[2017-07-17 17:00] LABS: MD YES
[2017-07-17 17:02] LABS: BANDS%(MANUAL) 8 % (0-7); LYMPH#(MANUAL) 0.24 x10^3/uL (1-3.4); LYMPHS% (MANUAL) 1 % (22-44); MONOS#(MANUAL) 1.19 x10^3/uL (0.3-2.7); MONOS% (MANUAL) 5 % (2-9); SEG#(MANUAL) 20.38 x10^3/uL (1.8-6.8); SEGS% (MANUAL) 86 % (42-75)
[2017-07-17 17:03] LABS: <PLATELET ESTIMATE> ADEQUATE; <PLT MORPHOLOGY> NORMAL PLT MORPH; <RBC MORPHOLOGY> NORMAL
[2017-07-17] MEDS ORDERED: OMNIPAQUE 350 MG/ML, 100ML BOTTLE ONE (17:49)
[2017-07-17] MEDS ORDERED: ONDANSETRON 2MG/ML, 2ML ONE (18:30)
[2017-07-17] MEDS ORDERED: HYDROmorphone 1 MG/ML, 1ML IVPush PRN (18:30)
[2017-07-17] MEDS ORDERED: ONDANSETRON 2MG/ML, 2ML IVPush ONE (18:30)
[2017-07-17] MEDS ORDERED: CEFOTETAN PMX 1GM/50ML 50 ML IVPB ONE (18:30)
[2017-07-17] MEDS ORDERED: HYDROmorphone 2 MG/ML, 1ML ONE ×2 (18:31→21:25)
[2017-07-17] MEDS ORDERED: WARF6TAB7 PO (18:52)
[2017-07-17] MEDS ORDERED: SODIUM CHLORIDE 0.9% 1,000 ML IV ONE ×2 (18:54→19:07)
[2017-07-17] MEDS ORDERED: CEFOTETAN PMX 1GM/50ML 50 ML ONE ×2 (18:54→18:59)
[2017-07-17 19:16] LABS: INTERNATIONAL NORMALIZED RATIO 2.57 (0.93-1.1); PROTHROMBIN TIME 26.2 Seconds (9.6-11.5)
[2017-07-17] MEDS ORDERED: SODIUM CHLORIDE FLUSH 10ML SYR IVF PRN (19:30)
[2017-07-17] MEDS ORDERED: POLYETHYLENE GLYCOL 17 GM PACKET PO PRN (20:00)
[2017-07-17] MEDS ORDERED: ONDANSETRON 2MG/ML, 2ML IVPush PRN (20:00)
[2017-07-17] MEDS ORDERED: ACETAMINOPHEN 325 MG TABLET PO PRN (20:00)
[2017-07-17] MEDS ORDERED: morphine SULFATE 10 MG/ML, 1ML IVPush PRN (20:00)
[2017-07-17] MEDS ORDERED: DOCUSATE 100 MG CAPSULE PO PRN (20:00)
[2017-07-17] MEDS ORDERED: LABETALOL 5MG/ML, 20ML IVPush PRN (20:00)
[2017-07-17] MEDS ORDERED: BISACODYL 10 MG SUPP PR PRN (20:00)
[2017-07-17] MEDS ORDERED: PHYTONADIONE 10 MG/ML, 1ML IM ONE (20:00)
[2017-07-17 21:00] VITALS: BP 126/81
[2017-07-17] MEDS: HYDROmorphone 1 MG/ML, 1ML IV PRN (21:29)
[2017-07-17] MEDS: METRONIDAZOLE PMX 500MG/100ML 100 ML IV SCH (21:34)
[2017-07-17] MEDS: NS + 20MEQ KCL 1,000 ML IV SCH (21:34)
[2017-07-17] MEDS: BUSPIRONE 10 MG TABLET PO SCH (22:25)
[2017-07-17] MEDS: METOPROLOL TARTRATE 50 MG TABLET PO SCH (22:25)
[2017-07-17] MEDS: ATORVASTATIN 20 MG TABLET PO SCH (22:25)
[2017-07-17] MEDS: CEFTRIAXONE 1,000 MG in DEXTROSE 5% 50 ML IV SCH (22:26)
[2017-07-17] MEDS: ZOLPIDEM 10MG TABLET PO PRN (22:37)
[2017-07-18 02:00] VITALS: BP 126/80
[2017-07-18] MEDS: METRONIDAZOLE PMX 500MG/100ML 100 ML IV SCH ×3 (04:26→23:03)
[2017-07-18] MEDS ORDERED: HYDROmorphone 2 MG/ML, 1ML ONE ×2 (04:29→08:37)
[2017-07-18] MEDS: HYDROmorphone 1 MG/ML, 1ML IV PRN (04:32)
[2017-07-18 05:01] LABS: MEAN CORPUSCULAR HEMOGLOBIN 30.8 pg (27.5-34.5); MEAN CORPUSCULAR VOLUME 90.6 fL (81-97); MEAN PLATELET VOLUME 9.4 fL (7.4-10.4); PLATELET COUNT 150 x10^3/uL (130-400); RED BLOOD COUNT 5.67 x10^6/uL (4.38-5.82)
[2017-07-18 05:13] LABS: ALBUMIN 3.2 g/dL (3.4-5.0); ANION GAP 7 mmol/L (5-15); CALCIUM 8.3 mg/dL (8.5-10.1); CHLORIDE 103 mmol/L (98-107)
[2017-07-18 05:18] LABS: ALANINE AMINOTRANSFERASE 47 U/L (12-78); ALKALINE PHOSPHATASE 72 U/L (45-117); BILIRUBIN,TOTAL 3.4 mg/dL (0.2-1.0); CREATININE 1.35 mg/dL (0.7-1.3)
[2017-07-18 05:50] LABS: MD YES
[2017-07-18 05:51] LABS: BANDS%(MANUAL) 1 % (0-7); LYMPHS% (MANUAL) 4 % (22-44); MONOS#(MANUAL) 1.21 x10^3/uL (0.3-2.7); MONOS% (MANUAL) 6 % (2-9); SEG#(MANUAL) 17.89 x10^3/uL (1.8-6.8); SEGS% (MANUAL) 89 % (42-75)
[2017-07-18 05:52] LABS: <PLATELET ESTIMATE> ADEQUATE; <PLT MORPHOLOGY> NORMAL PLT MORPH; <RBC MORPHOLOGY> NORMAL
[2017-07-18 07:16] VITALS: BP 125/81
[2017-07-18 07:20] VITALS: BP_SYST 101; BP_SYST 76; BP_DIAS 57; BP_DIAS 69
[2017-07-18] MEDS: METOPROLOL TARTRATE 50 MG TABLET PO SCH ×2 (08:44→21:05)
[2017-07-18] MEDS: BUSPIRONE 10 MG TABLET PO SCH ×2 (08:44→21:04)
[2017-07-18] MEDS: HYDROcodone/APAP 5/325 TABLET PO PRN ×5 (08:51→23:03)
[2017-07-18] MEDS ORDERED: PHYTONADIONE 10 MG/ML, 1ML IM ONE (09:00)
[2017-07-18] MEDS: HYDROCHLOROTHIAZIDE 25 MG TABLET PO SCH (09:00)
[2017-07-18] MEDS: LISINOPRIL 20 MG TABLET PO SCH (09:00)
[2017-07-18] MEDS: NS + 20MEQ KCL 1,000 ML IV SCH ×2 (09:49→23:00)
[2017-07-18 09:51] LABS: INTERNATIONAL NORMALIZED RATIO 2.57 (0.93-1.1); PROTHROMBIN TIME 26.2 Seconds (9.6-11.5)
[2017-07-18 14:19] VITALS: BP 113/74
[2017-07-18 20:42] VITALS: BP 87/53
[2017-07-18] MEDS: ATORVASTATIN 20 MG TABLET PO SCH (21:05)
[2017-07-18] MEDS: CEFTRIAXONE 1,000 MG in DEXTROSE 5% 50 ML IV SCH (21:05)
[2017-07-18] MEDS: ZOLPIDEM 10MG TABLET PO PRN (23:13)
[2017-07-19 01:44] VITALS: BP 144/69
[2017-07-19] MEDS: METRONIDAZOLE PMX 500MG/100ML 100 ML IV SCH ×2 (04:00→13:03)
[2017-07-19 05:53] LABS: INTERNATIONAL NORMALIZED RATIO 1.81 (0.93-1.1); PROTHROMBIN TIME 18.6 Seconds (9.6-11.5)
[2017-07-19 06:00] LABS: ALBUMIN 2.5 g/dL (3.4-5.0); ANION GAP 7 mmol/L (5-15); CHLORIDE 102 mmol/L (98-107)
[2017-07-19 06:03] LABS: ALANINE AMINOTRANSFERASE 33 U/L (12-78); ALKALINE PHOSPHATASE 76 U/L (45-117); BILIRUBIN,TOTAL 4.9 mg/dL (0.2-1.0); CREATININE 1.83 mg/dL (0.7-1.3); TOTAL PROTEIN 6.3 g/dL (6.4-8.2)
[2017-07-19 06:04] LABS: MEAN CORPUSCULAR HEMOGLOBIN 31.8 pg (27.5-34.5); MEAN CORPUSCULAR HGB CONC 34.3 g/dL (33.2-36.2); MEAN CORPUSCULAR VOLUME 92.8 fL (81-97); MEAN PLATELET VOLUME 9.9 fL (7.4-10.4); PLATELET COUNT 108 x10^3/uL (130-400); RED BLOOD COUNT 5.01 x10^6/uL (4.38-5.82); RED CELL DISTRIBUTION WIDTH 13.7 % (9.4-14.8)
[2017-07-19] MEDS ORDERED: BUPIVACAINE/PF 0.5% ONE (06:21)
[2017-07-19 06:28] LABS: BASOPHILS # (AUTO) 0.02 x10^3/uL (0-0.1); BASOPHILS % (AUTO) 0 % (0-1); EOSINOPHILS # (AUTO) 0.03 x10^3/uL (0-0.4); EOSINOPHILS % (AUTO) 0 % (1-7); LYMPHOCYTES # (AUTO) 1.22 x10^3/uL (1-3.4); LYMPHOCYTES % (AUTO) 8 % (22-44); MD SCAN; MONOCYTES # (AUTO) 1.23 x10^3/uL (0.2-0.8); MONOCYTES % (AUTO) 8 % (2-9); NEUTROPHILS # (AUTO) 13.81 x10^3/uL (1.8-6.8); NEUTROPHILS % (AUTO) 85 % (42-75)
[2017-07-19] MEDS ORDERED: PHYTONADIONE 10 MG/ML, 1ML IM ONE (08:30)
[2017-07-19] MEDS ORDERED: BUPIVACAINE/PF-EPI 0.5% 1:200K IM ONE (08:43)
[2017-07-19] MEDS: BUSPIRONE 10 MG TABLET PO SCH ×2 (09:00→20:50)
[2017-07-19] MEDS: LISINOPRIL 20 MG TABLET PO SCH (09:00)
[2017-07-19] MEDS: HYDROCHLOROTHIAZIDE 25 MG TABLET PO SCH (09:00)
[2017-07-19] MEDS ORDERED: FENTANYL PF 250 MCG/5ML ONE (09:21)
[2017-07-19] MEDS ORDERED: MIDAZOLAM 1 MG/ML, 2ML ONE (09:21)
[2017-07-19] MEDS ORDERED: ROCURONIUM 10 MG/ML,10ML ONE (09:45)
[2017-07-19] MEDS ORDERED: CEFOTETAN PMX 2GM/50ML 50 ML ONE (09:45)
[2017-07-19] MEDS ORDERED: PROPOFOL 10 MG/ML, 20ML ONE (09:45)
[2017-07-19] MEDS ORDERED: ONDANSETRON 2MG/ML, 2ML ONE ×2 (09:45)
[2017-07-19] MEDS ORDERED: DEXAMETHASONE 4 MG/ML, 1ML ONE ×2 (09:45)
[2017-07-19] MEDS ORDERED: SUCCINYLCHOLINE 20 MG/ML, 10ML ONE (09:45)
[2017-07-19] MEDS ORDERED: MIDAZOLAM 1 MG/ML, 2ML IV PRN (10:00)
[2017-07-19] MEDS ORDERED: PROMETHAZINE 25 MG/ML, 1ML IV PRN (10:00)
[2017-07-19] MEDS ORDERED: MEPERIDINE/PF 25MG/0.5ML IVPush PRN (10:00)
[2017-07-19] MEDS ORDERED: ONDANSETRON 2MG/ML, 2ML IVPush PRN (10:00)
[2017-07-19] MEDS ORDERED: LABETALOL 5MG/ML, 20ML IV PRN (10:00)
[2017-07-19] MEDS ORDERED: ALBUTEROL SULFATE 2.5 MG/3 ML NPPB PRN (10:00)
[2017-07-19] MEDS ORDERED: hydrALAzine 20 MG/ML, 1ML IV PRN (10:00)
[2017-07-19] MEDS ORDERED: OXYcodone 5 MG/5 ML ORAL.SOL UDC PO PRN (10:00)
[2017-07-19] MEDS ORDERED: FENTANYL PF 100 MCG/2ML ONE ×2 (10:21→11:17)
[2017-07-19] MEDS ORDERED: LIDOCAINE 2%, 20ML ONE (11:19)
[2017-07-19] MEDS: FENTANYL PF 100 MCG/2ML IV PRN ×2 (11:19→11:30)
[2017-07-19] MEDS ORDERED: HYDROmorphone 2 MG/ML, 1ML ONE (11:47)
[2017-07-19] MEDS: HYDROmorphone 1 MG/ML, 1ML IV PRN ×2 (11:48→12:02)
[2017-07-19 13:00] VITALS: BP 134/88
[2017-07-19] MEDS ORDERED: DOXYCYCLINE 100 MG in DEXTROSE 5% 250 ML IV SCH (13:00)
[2017-07-19] MEDS: NS + 20MEQ KCL 1,000 ML IV SCH (13:18)
[2017-07-19] MEDS: METOPROLOL TARTRATE 50 MG TABLET PO SCH ×2 (13:53→20:50)
[2017-07-19] MEDS ORDERED: VANCOMYCIN PER PHARMACY MC PRN (14:00)
[2017-07-19] MEDS ORDERED: HYDROmorphone 2MG TABLET PO PRN (14:00)
[2017-07-19] MEDS ORDERED: PHARMACOKINETIC CONSULTATION MC ONE (14:30)
[2017-07-19] MEDS ORDERED: PHARMACOKINETIC MONITORING MC PRN (14:30)
[2017-07-19] MEDS: PIPERACILLIN/TAZO/PMX 3.375GM 50 ML IV SCH ×2 (14:59→20:50)
[2017-07-19] MEDS: VANCOMYCIN 1,700 MG in SODIUM CHLORIDE 0.9% 250 ML IV SCH (15:39)
[2017-07-19] MEDS: WARFARIN 3 MG TABLET PO-COUM SCH (18:09)
[2017-07-19 19:37] VITALS: BP 133/93
[2017-07-19] MEDS: ATORVASTATIN 20 MG TABLET PO SCH (20:50)
[2017-07-19] MEDS: GUAIFENESIN ER 600 MG TABLET PO SCH (20:50)
[2017-07-19] MEDS: ENOXAPARIN 30 MG/0.3 ML SQ SCH (20:51)
[2017-07-19] MEDS: ZOLPIDEM 10MG TABLET PO PRN (21:04)
[2017-07-19] MEDS: HYDROcodone/APAP 5/325 TABLET PO PRN (21:05)
[2017-07-20 01:51] VITALS: BP 156/90
[2017-07-20] MEDS: NICOTINE 14MG/24 HR PATCH.TD24 TD SCH ×2 (02:08→21:00)
[2017-07-20] MEDS: PIPERACILLIN/TAZO/PMX 3.375GM 50 ML IV SCH ×3 (02:49→18:17)
[2017-07-20] MEDS: NS + 20MEQ KCL 1,000 ML IV SCH (02:49)
[2017-07-20 05:58] LABS: BASOPHILS % (AUTO) 0 % (0-1); EOSINOPHILS % (AUTO) 0 % (1-7); LYMPHOCYTES # (AUTO) 0.55 x10^3/uL (1-3.4); LYMPHOCYTES % (AUTO) 6 % (22-44); MD NO; MEAN CORPUSCULAR HEMOGLOBIN 30.7 pg (27.5-34.5); MEAN CORPUSCULAR HGB CONC 33.2 g/dL (33.2-36.2); MEAN CORPUSCULAR VOLUME 92.3 fL (81-97); MEAN PLATELET VOLUME 10.3 fL (7.4-10.4); MONOCYTES # (AUTO) 0.57 x10^3/uL (0.2-0.8); MONOCYTES % (AUTO) 6 % (2-9); NEUTROPHILS # (AUTO) 8.78 x10^3/uL (1.8-6.8); NEUTROPHILS % (AUTO) 89 % (42-75); PLATELET COUNT 100 x10^3/uL (130-400); RED BLOOD COUNT 4.65 x10^6/uL (4.38-5.82); RED CELL DISTRIBUTION WIDTH 13.8 % (9.4-14.8)
[2017-07-20 06:10] LABS: CALCIUM 8.3 mg/dL (8.5-10.1); CHLORIDE 104 mmol/L (98-107)
[2017-07-20 06:16] LABS: ALANINE AMINOTRANSFERASE 43 U/L (12-78); ALBUMIN 2.5 g/dL (3.4-5.0); ALKALINE PHOSPHATASE 79 U/L (45-117); ANION GAP 9 mmol/L (5-15); BILIRUBIN,TOTAL 2.2 mg/dL (0.2-1.0); CREATININE 1.29 mg/dL (0.7-1.3); TOTAL PROTEIN 6.6 g/dL (6.4-8.2)
[2017-07-20 07:30] VITALS: BP 136/94
[2017-07-20] MEDS: HYDROcodone/APAP 5/325 TABLET PO PRN ×2 (08:15→12:49)
[2017-07-20] MEDS ORDERED: OMNIPAQUE 350 MG/ML, 100ML BOTTLE ONE (09:05)
[2017-07-20] MEDS: GUAIFENESIN ER 600 MG TABLET PO SCH (09:27)
[2017-07-20] MEDS: BUSPIRONE 10 MG TABLET PO SCH (09:27)
[2017-07-20] MEDS: LISINOPRIL 20 MG TABLET PO SCH (09:27)
[2017-07-20] MEDS: ENOXAPARIN 30 MG/0.3 ML SQ SCH (09:27)
[2017-07-20] MEDS: PANTOPROZOLE 40MG TABLET PO SCH (09:28)
[2017-07-20] MEDS: HYDROCHLOROTHIAZIDE 25 MG TABLET PO SCH (09:28)
[2017-07-20] MEDS: METOPROLOL TARTRATE 50 MG TABLET PO SCH (09:28)
[2017-07-20] MEDS ORDERED: FUROSEMIDE 20 MG/2 ML IV ONE (10:30)
[2017-07-20 14:00] VITALS: BP 138/82
[2017-07-20] MEDS: WARFARIN 3 MG TABLET PO-COUM SCH (18:17)
[2017-07-20] MEDS: VANCOMYCIN 1,700 MG in SODIUM CHLORIDE 0.9% 250 ML IV SCH (19:56)
[2017-07-20 20:03] VITALS: BP 126/89
[2017-07-21] MEDS: GUAIFENESIN ER 600 MG TABLET PO SCH ×2 (00:14→08:15)
[2017-07-21] MEDS: METOPROLOL TARTRATE 50 MG TABLET PO SCH ×2 (00:14→08:15)
[2017-07-21] MEDS: ZOLPIDEM 10MG TABLET PO PRN (00:14)
[2017-07-21] MEDS: PIPERACILLIN/TAZO/PMX 3.375GM 50 ML IV SCH ×4 (00:15→17:26)
[2017-07-21] MEDS: ENOXAPARIN 30 MG/0.3 ML SQ SCH ×2 (00:15→10:25)
[2017-07-21] MEDS: BUSPIRONE 10 MG TABLET PO SCH ×2 (00:15→08:15)
[2017-07-21] MEDS: ATORVASTATIN 20 MG TABLET PO SCH (00:15)
[2017-07-21 03:22] VITALS: BP 130/93
[2017-07-21 05:25] LABS: BASOPHILS % (AUTO) 0 % (0-1); EOSINOPHILS % (AUTO) 0 % (1-7); LYMPHOCYTES % (AUTO) 7 % (22-44); MD NO; MEAN CORPUSCULAR HEMOGLOBIN 31.2 pg (27.5-34.5); MEAN CORPUSCULAR VOLUME 91.6 fL (81-97); MONOCYTES # (AUTO) 0.87 x10^3/uL (0.2-0.8); MONOCYTES % (AUTO) 7 % (2-9); NEUTROPHILS # (AUTO) 10.58 x10^3/uL (1.8-6.8); NEUTROPHILS % (AUTO) 86 % (42-75); PLATELET COUNT 149 x10^3/uL (130-400); RED CELL DISTRIBUTION WIDTH 13.4 % (9.4-14.8)
[2017-07-21 05:42] LABS: ALBUMIN 2.2 g/dL (3.4-5.0); ANION GAP 8 mmol/L (5-15); CALCIUM 8.6 mg/dL (8.5-10.1); CHLORIDE 107 mmol/L (98-107)
[2017-07-21 05:46] LABS: ALANINE AMINOTRANSFERASE 44 U/L (12-78); ALKALINE PHOSPHATASE 80 U/L (45-117); BILIRUBIN,TOTAL 1.1 mg/dL (0.2-1.0); CREATININE 1.13 mg/dL (0.7-1.3); TOTAL PROTEIN 6.1 g/dL (6.4-8.2)
[2017-07-21 08:04] VITALS: BP 162/108
[2017-07-21] MEDS: LISINOPRIL 20 MG TABLET PO SCH (08:14)
[2017-07-21] MEDS: PANTOPROZOLE 40MG TABLET PO SCH (08:15)
[2017-07-21] MEDS: HYDROCHLOROTHIAZIDE 25 MG TABLET PO SCH (08:15)
[2017-07-21] MEDS ORDERED: FUROSEMIDE 20 MG/2 ML IV ONE (09:00)
[2017-07-21 09:43] LABS: INTERNATIONAL NORMALIZED RATIO 1.34 (0.93-1.1); PROTHROMBIN TIME 13.9 Seconds (9.6-11.5)
[2017-07-21] MEDS: HYDROcodone/APAP 5/325 TABLET PO PRN ×2 (10:28→11:25)
[2017-07-21 14:35] VITALS: BP 136/97
[2017-07-21] MEDS ORDERED: METR500T PO (16:38)
[2017-07-21] MEDS ORDERED: CEFD300C37 PO (16:38)
[2017-07-21] MEDS ORDERED: DOXY100T PO (16:38)
[2017-07-21] MEDS ORDERED: WARFARIN 7.5 MG TABLET PO-COUM SCH (18:00)
== END 2017-07-21 18:30 | disposition home or self-care (01) | DRG 853 ==
LOC: ED 18:09 → EDIP 19:31 → 4NOR 19:59
PROVIDERS: ADMIT Internal Medicine; ATTEND Internal Medicine
PROC: 0FT44ZZ Resection of Gallbladder, Percutaneous Endoscopic Approach (ICD-10-PCS; 2017-07-19)
PROC: 30233K1 Transfusion of Nonautologous Frozen Plasma into Peripheral Vein, Percutaneous Approach (ICD-10-PCS; 2017-07-19)
PROC: 30233L1 Transfusion of Nonautologous Fresh Plasma into Peripheral Vein, Percutaneous Approach (ICD-10-PCS; principal; 2017-07-19 09:15)
DX: A41.9 Sepsis, unspecified organism (principal); I81 Portal vein thrombosis; J96.00 Acute respiratory failure, unspecified whether with hypoxia or hypercapnia; J81.1 Chronic pulmonary edema; N17.9 Acute kidney failure, unspecified; K66.8 Other specified disorders of peritoneum; D68.59 Other primary thrombophilia; K80.00 Calculus of gallbladder with acute cholecystitis without obstruction; J98.11 Atelectasis; I11.9 Hypertensive heart disease without heart failure; D75.1 Secondary polycythemia; E78.1 Pure hyperglyceridemia; E78.5 Hyperlipidemia, unspecified; J44.9 Chronic obstructive pulmonary disease, unspecified; K29.00 Acute gastritis without bleeding; Z79.01 Long term (current) use of anticoagulants; Z82.5 Family history of asthma and other chronic lower respiratory diseases
CPT/HCPCS: 36415; 71045; 71275; 74177; 80053; 80307; 83690; 85025; 85610; 85730; 86850; 86900; 87040; 87070; 87205; 88304; 94660; 96361; 96365; 96375; J1100; J1170; J1650; J2250; J2405; J2543; J2704; J3010; J3370; J3430; J3480; J3490; Q9967; J0330; J1940; J7030; J7050; P9017; S0074

== ENCOUNTER 2018-03-17 14:30 | Emergency (ER) | payer MEDICAID ==
[~2018-03-17] VITALS: Ht 177.8 cm; Wt 96.3 kg
[~2018-03-17 14:30] MED LIST changes: +CEFD300C37 PO; +DOXY100T PO; +METR500T PO; +WARF6TAB47 PO
[2018-03-17] MEDS ORDERED: MAALOX/HYOSCYAMINE/LIDOCAINE 45 ML BTL PO ONE ×2 (15:00→16:00)
[2018-03-17] MEDS ORDERED: FAMOTIDINE 20 MG TABLET PO ONE ×2 (15:00→16:00)
[2018-03-17] MEDS ORDERED: ONDANSETRON ODT 4 MG PO ONE (15:00)
[2018-03-17 15:06] LABS: BASOPHILS # (AUTO) 0.05 x10^3/uL (0-0.1); BASOPHILS % (AUTO) 1 % (0-1); EOSINOPHILS # (AUTO) 0.08 x10^3/uL (0-0.4); EOSINOPHILS % (AUTO) 1 % (1-7); LYMPHOCYTES # (AUTO) 1.64 x10^3/uL (1-3.4); LYMPHOCYTES % (AUTO) 26 % (22-44); MD NO; MEAN CORPUSCULAR HEMOGLOBIN 31.5 pg (27.5-34.5); MEAN CORPUSCULAR HGB CONC 33.6 g/dL (33.2-36.2); MEAN CORPUSCULAR VOLUME 93.7 fL (81-97); MEAN PLATELET VOLUME 9.9 fL (7.4-10.4); MONOCYTES # (AUTO) 0.58 x10^3/uL (0.2-0.8); MONOCYTES % (AUTO) 9 % (2-9); NEUTROPHILS # (AUTO) 4.05 x10^3/uL (1.8-6.8); NEUTROPHILS % (AUTO) 63 % (42-75); PLATELET COUNT 157 x10^3/uL (130-400); RED BLOOD COUNT 6.26 x10^6/uL (4.38-5.82); RED CELL DISTRIBUTION WIDTH 13.9 % (9.4-14.8)
[2018-03-17] MEDS ORDERED: MAALOX/HYOSCYAMINE/LIDOCAINE 45 ML BTL ONE (15:08)
[2018-03-17] MEDS ORDERED: ONDANSETRON ODT 4 MG ONE (15:08)
[2018-03-17] MEDS ORDERED: FAMOTIDINE 20 MG TABLET ONE ×2 (15:08→16:28)
[2018-03-17 15:17] LABS: ALBUMIN 3.7 g/dL (3.4-5.0); ANION GAP 6 mmol/L (5-15); CALCIUM 8.8 mg/dL (8.5-10.1); CHLORIDE 105 mmol/L (98-107); CREATININE 1.25 mg/dL (0.7-1.3)
[2018-03-17 15:21] LABS: ALANINE AMINOTRANSFERASE 29 U/L (12-78); ALKALINE PHOSPHATASE 206 U/L (45-117); BILIRUBIN,TOTAL 2.3 mg/dL (0.2-1.0); TOTAL PROTEIN 7.7 g/dL (6.4-8.2)
[2018-03-17 15:30] LABS: MICROSCOPIC INDICATED
[2018-03-17 15:41] LABS: CULTURE INDICATED? NO
[2018-03-17] MEDS ORDERED: OMNIPAQUE 350 MG/ML, 100ML BOTTLE ONE (17:55)
[2018-03-17 19:13] VITALS: BP 114/93
== END 2018-03-17 19:16 | disposition home or self-care (01) ==
LOC: ED 16:16
DX: K86.1 Other chronic pancreatitis (principal); K26.3 Acute duodenal ulcer without hemorrhage or perforation; E78.5 Hyperlipidemia, unspecified; I10 Essential (primary) hypertension; E78.00 Pure hypercholesterolemia, unspecified
CPT/HCPCS: 36415; 74177; 76700; 80053; 81001; 83690; 85025; 99285; Q0162; Q9967

== ENCOUNTER → 2018-04-14 | Outpatient (CLI) | payer MEDICAID | END | disposition home or self-care (01) | LOC: CFH 14:12 | PROVIDERS: ATTEND Internal Medicine Cardiovascular Disease | DX: E78.2 Mixed hyperlipidemia (principal); R06.02 Shortness of breath; I10 Essential (primary) hypertension; E78.5 Hyperlipidemia, unspecified; R94.31 Abnormal electrocardiogram [ECG] [EKG]; Z79.01 Long term (current) use of anticoagulants | CPT/HCPCS: 71046 ==

== ENCOUNTER 2018-04-20 07:32 | Day surgery (SDC) | payer MEDICAID ==
[~2018-04-20] VITALS: Ht 175.3 cm; Wt 97.7 kg
[2018-04-20] MEDS ORDERED: SODIUM CHLORIDE 0.9% 1,000 ML IV ONE (07:53)
[2018-04-20] MEDS ORDERED: DIPHENHYDRAMINE 50 MG/ML, 1ML IVPush ONE (08:00)
[2018-04-20] MEDS ORDERED: PLEASE ENTER ALLERGIES MC SCH (08:00)
[2018-04-20] MEDS ORDERED: PLEASE ENTER HEIGHT AND WEIGHT MC SCH (08:00)
[2018-04-20 08:03] VITALS: BP 159/110
[2018-04-20] MEDS ORDERED: ESCI10TA PO (08:09)
[2018-04-20] MEDS ORDERED: PANT40TA3 PO (08:09)
[2018-04-20] MEDS ORDERED: LORA0.5T PO (08:09)
[2018-04-20] MEDS ORDERED: NAPR-850 PO (08:09)
[2018-04-20] MEDS ORDERED: LIDOCAINE-MPF 2%, 2ML ONE (09:16)
[2018-04-20] MEDS ORDERED: NITROGLYCERIN 5 MG/ML, 10ML ONE (09:16)
[2018-04-20] MEDS ORDERED: VERAPAMIL 2.5 MG/ML, 2ML ONE (09:16)
[2018-04-20] MEDS ORDERED: MIDAZOLAM 1 MG/ML, 5ML ONE (09:16)
[2018-04-20] MEDS ORDERED: FENTANYL PF 100 MCG/2ML ONE ×2 (09:16→10:33)
[2018-04-20] MEDS ORDERED: HEPARIN 1,000 UNITS/ML, 10ML ONE (09:17)
[2018-04-20] MEDS ORDERED: SODIUM CHLORIDE 0.9% IV PRN (10:00)
[2018-04-20] MEDS ORDERED: ADENOSINE IV PRN (10:00)
[2018-04-20] MEDS ORDERED: BUPIVACAINE 0.25% ONE (10:36)
[2018-04-20] MEDS ORDERED: MIDAZOLAM 1 MG/ML, 2ML ONE (10:37)
[2018-04-20 12:05] VITALS: BP 123/92
[2018-04-20 15:04] VITALS: BP 123/90
[2018-04-20 15:10] VITALS: BP 123/90
== END 2018-04-20 16:04 | disposition home or self-care (01) ==
LOC: OUT 07:32
PROVIDERS: ATTEND Internal Medicine Cardiovascular Disease
DX: I27.21 Secondary pulmonary arterial hypertension (principal); I10 Essential (primary) hypertension; E78.5 Hyperlipidemia, unspecified; G47.30 Sleep apnea, unspecified; E78.2 Mixed hyperlipidemia; F41.9 Anxiety disorder, unspecified; F19.90 Other psychoactive substance use, unspecified, uncomplicated; Z88.6 Allergy status to analgesic agent
CPT/HCPCS: 71045; 78582; 93306; 93460; 93463; 99156; 99157; A9540; A9558; C1769; C1894; J1644; J2250; J3010; J3490; J7030

== ENCOUNTER → 2018-09-27 | Outpatient (CLI) | payer MEDICAID ==
[~2018-09-27] MED LIST changes: +ATOR20TA37 PO; -ATOR20TA9 PO; +ESCI10TA PO; +LORA0.5T PO; +MACI10TA PO; +NAPR-850 PO; +PANT40TA3 PO; +RIOC1.5T PO
== END | disposition home or self-care (01) ==
LOC: CFH 12:21
PROVIDERS: ATTEND Internal Medicine Cardiovascular Disease
DX: I07.1 Rheumatic tricuspid insufficiency (principal); I07.9 Rheumatic tricuspid valve disease, unspecified; I11.9 Hypertensive heart disease without heart failure; E78.5 Hyperlipidemia, unspecified
CPT/HCPCS: 93306

== ENCOUNTER 2018-11-18 23:38 | Emergency (ER) | payer MEDICAID ==
[~2018-11-18] VITALS: Ht 175.3 cm; Wt 100.0 kg
[2018-11-19] MEDS ORDERED: RIOC2.5T PO (00:12)
[2018-11-19 00:35] LABS: BASOPHILS # (AUTO) 0.02 x10^3/uL (0-0.1); BASOPHILS % (AUTO) 0 % (0-1); EOSINOPHILS # (AUTO) 0.05 x10^3/uL (0-0.4); EOSINOPHILS % (AUTO) 1 % (1-7); LYMPHOCYTES # (AUTO) 1.07 x10^3/uL (1-3.4); LYMPHOCYTES % (AUTO) 14 % (22-44); MD NO; MEAN CORPUSCULAR HEMOGLOBIN 33.6 pg (27.5-34.5); MEAN CORPUSCULAR HGB CONC 35.1 g/dL (33.2-36.2); MEAN CORPUSCULAR VOLUME 95.7 fL (81-97); MEAN PLATELET VOLUME 8.6 fL (7.4-10.4); MONOCYTES # (AUTO) 0.75 x10^3/uL (0.2-0.8); MONOCYTES % (AUTO) 10 % (2-9); NEUTROPHILS # (AUTO) 5.75 x10^3/uL (1.8-6.8); NEUTROPHILS % (AUTO) 75 % (42-75); PLATELET COUNT 133 x10^3/uL (130-400); RED BLOOD COUNT 5.05 x10^6/uL (4.38-5.82); RED CELL DISTRIBUTION WIDTH 12.9 % (9.4-14.8)
--- NOTE | 2018-11-19 00:40 | NUR ---
PT HERE FOR BILATERAL PEDAL EDEMA AND INCREASED SOB. PT HAS BEEN TAKEN MEDS PRESCRIBED. PT HAS HX OF CHF AND WEARS 3 L O2 NEEDED AT HOME.PT WAS HYPOXIC IN ROOM AND PLACED ON 3 L. OTHER VSS. PIV PLACED AND BLOOD SENT TO LAB. PT NOW RESTING WITH NO NEEDS AT THIS TIME. CALL LIGHT IN REACH
[2018-11-19 00:48] LABS: ALANINE AMINOTRANSFERASE 36 U/L (12-78); ANION GAP 8 mmol/L (5-15); CALCIUM 8.7 mg/dL (8.5-10.1); CHLORIDE 106 mmol/L (98-107); CREATININE 1.53 mg/dL (0.7-1.3)
[2018-11-19 00:52] LABS: ALKALINE PHOSPHATASE 128 U/L (45-117); BILIRUBIN,TOTAL 1.7 mg/dL (0.2-1.0); TOTAL PROTEIN 7.4 g/dL (6.4-8.2); TROPONIN I < 0.015 ng/mL (0.000-0.045)
--- NOTE | 2018-11-19 01:03 | NUR ---
REPORT TO JANY CRAMER.
--- NOTE | 2018-11-19 01:52 | NUR ---
Per MD pt to be given meds now, not 0900, pt to be discharged after compression stockings. IV removed, pt agrees to plan
[2018-11-19 02:13] VITALS: BP 106/74
[2018-11-19] MEDS ORDERED: BUMETANIDE 1 MG TABLET PO SCH (09:00)
== END 2018-11-19 02:15 | disposition home or self-care (01) ==
LOC: ED 23:54
DX: I50.9 Heart failure, unspecified (principal); I11.0 Hypertensive heart disease with heart failure; R60.0 Localized edema; E78.5 Hyperlipidemia, unspecified; E78.00 Pure hypercholesterolemia, unspecified; I95.9 Hypotension, unspecified
CPT/HCPCS: 36415; 71045; 80053; 83735; 83880; 84484; 85025; 93005; 99284

== ENCOUNTER 2018-11-21 06:57 | Observation (INO) | payer MEDICAID ==
[~2018-11-21] VITALS: Ht 175.3 cm; Wt 99.0 kg
[~2018-11-21 06:57] MED LIST changes: +RIOC2.5T PO
[2018-11-21] MEDS ORDERED: KETOROLAC 30 MG/1 ML IVPush ONE (07:30)
[2018-11-21] MEDS ORDERED: SODIUM CHLORIDE FLUSH 10ML SYR IVF ONE (07:30)
[2018-11-21] MEDS ORDERED: OXYcodone/APAP 5/325MG TABLET PO ONE (07:30)
[2018-11-21] MEDS ORDERED: KETOROLAC 30 MG/1 ML ONE (07:30)
[2018-11-21] MEDS ORDERED: OXYcodone/APAP 5/325MG TABLET ONE (07:31)
[2018-11-21 07:39] LABS: BASOPHILS # (AUTO) 0.03 x10^3/uL (0-0.1); BASOPHILS % (AUTO) 1 % (0-1); EOSINOPHILS # (AUTO) 0.09 x10^3/uL (0-0.4); EOSINOPHILS % (AUTO) 1 % (1-7); LYMPHOCYTES # (AUTO) 1.32 x10^3/uL (1-3.4); LYMPHOCYTES % (AUTO) 21 % (22-44); MD NO; MEAN CORPUSCULAR HEMOGLOBIN 33.5 pg (27.5-34.5); MEAN CORPUSCULAR HGB CONC 34.8 g/dL (33.2-36.2); MEAN CORPUSCULAR VOLUME 96.2 fL (81-97); MEAN PLATELET VOLUME 8.1 fL (7.4-10.4); MONOCYTES # (AUTO) 0.72 x10^3/uL (0.2-0.8); MONOCYTES % (AUTO) 11 % (2-9); NEUTROPHILS # (AUTO) 4.17 x10^3/uL (1.8-6.8); NEUTROPHILS % (AUTO) 66 % (42-75); PLATELET COUNT 146 x10^3/uL (130-400); RED BLOOD COUNT 5.25 x10^6/uL (4.38-5.82); RED CELL DISTRIBUTION WIDTH 12.7 % (9.4-14.8)
[2018-11-21 07:49] LABS: ALANINE AMINOTRANSFERASE 28 U/L (12-78); ALBUMIN 3.8 g/dL (3.4-5.0); ANION GAP 9 mmol/L (5-15); CALCIUM 9.2 mg/dL (8.5-10.1); CHLORIDE 102 mmol/L (98-107); CREATININE 1.67 mg/dL (0.7-1.3)
[2018-11-21 07:54] LABS: ALKALINE PHOSPHATASE 146 U/L (45-117); BILIRUBIN,TOTAL 1.9 mg/dL (0.2-1.0); CREATINE KINASE, TOTAL 73 U/L (39-308); TOTAL PROTEIN 7.9 g/dL (6.4-8.2)
[2018-11-21] MEDS ORDERED: SODIUM CHLORIDE FLUSH 10ML SYR IVF PRN (10:00)
[2018-11-21] MEDS ORDERED: GABAPENTIN 300 MG CAPSULE PO PRN (10:30)
[2018-11-21] MEDS ORDERED: ACETAMINOPHEN 325 MG TABLET PO PRN (10:30)
[2018-11-21] MEDS ORDERED: POTASSIUM CHLORIDE 20 MEQ TAB.ER.PRT PO ONE (10:30)
[2018-11-21] MEDS ORDERED: METHOCARBAMOL 500 MG TABLET PO PRN (10:30)
[2018-11-21] MEDS ORDERED: ONDANSETRON 2MG/ML, 2ML IVPush PRN (10:30)
[2018-11-21] MEDS ORDERED: ONDANSETRON ODT 4 MG PO PRN (10:30)
[2018-11-21] MEDS ORDERED: ZOLPIDEM 10MG TABLET PO PRN (10:30)
[2018-11-21 11:15] LABS: HCT (SEDRATE) 50.5 % (39.2-51.8)
[2018-11-21 11:32] LABS: THYROID STIMULATING HORMONE 4.46 mIU/L (0.358-3.740)
[2018-11-21 11:53] VITALS: BP 103/73
[2018-11-21] MEDS: HEPARIN 5,000 UNITS/ML, 1ML SQ SCH ×2 (12:25→21:31)
[2018-11-21] MEDS: NICOTINE 14MG/24 HR PATCH.TD24 TD SCH (12:26)
[2018-11-21] MEDS: POTASSIUM CHLORIDE 20 MEQ TAB.ER.PRT PO SCH ×2 (12:33→17:27)
[2018-11-21 13:30] VITALS: BP 103/73
[2018-11-21] MEDS: TEMPLATE NON-FORMULARY MED. (Riociguat** (Adempas**) 2.5 MG) PO SCH ×2 (15:44→21:31)
[2018-11-21 18:31] VITALS: BP 110/77
[2018-11-21] MEDS ORDERED: ATORVASTATIN 20 MG TABLET PO SCH (21:00)
[2018-11-21] MEDS: BUSPIRONE 10 MG TABLET PO SCH (21:31)
[2018-11-21] MEDS: LORazepam 0.5MG TABLET PO SCH (21:31)
[2018-11-21] MEDS: METOPROLOL TARTRATE 25 MG TABLET PO SCH (21:32)
[2018-11-21] MEDS: TEMPLATE NON-FORMULARY MED. (Macitentan** (Opsumit**) 10 MG) HOMEMEDPO SCH (23:45)
[2018-11-22 00:53] VITALS: BP 106/74
[2018-11-22 06:01] LABS: BASOPHILS # (AUTO) 0.03 x10^3/uL (0-0.1); BASOPHILS % (AUTO) 1 % (0-1); EOSINOPHILS # (AUTO) 0.08 x10^3/uL (0-0.4); EOSINOPHILS % (AUTO) 2 % (1-7); LYMPHOCYTES % (AUTO) 27 % (22-44); MD NO; MEAN CORPUSCULAR HEMOGLOBIN 33.1 pg (27.5-34.5); MEAN CORPUSCULAR HGB CONC 34.3 g/dL (33.2-36.2); MEAN CORPUSCULAR VOLUME 96.7 fL (81-97); MEAN PLATELET VOLUME 8.3 fL (7.4-10.4); MONOCYTES # (AUTO) 0.61 x10^3/uL (0.2-0.8); MONOCYTES % (AUTO) 13 % (2-9); NEUTROPHILS # (AUTO) 2.85 x10^3/uL (1.8-6.8); NEUTROPHILS % (AUTO) 59 % (42-75); PLATELET COUNT 144 x10^3/uL (130-400); RED BLOOD COUNT 5.02 x10^6/uL (4.38-5.82); RED CELL DISTRIBUTION WIDTH 12.9 % (9.4-14.8)
[2018-11-22 06:14] LABS: CHLORIDE 105 mmol/L (98-107)
[2018-11-22] MEDS: HEPARIN 5,000 UNITS/ML, 1ML SQ SCH ×2 (06:19→14:21)
[2018-11-22 06:55] LABS: ALANINE AMINOTRANSFERASE 24 U/L (12-78); ALBUMIN 3.4 g/dL (3.4-5.0); ALKALINE PHOSPHATASE 126 U/L (45-117); ANION GAP 8 mmol/L (5-15); BILIRUBIN,TOTAL 1.6 mg/dL (0.2-1.0); CALCIUM 8.8 mg/dL (8.5-10.1); CHOL/HDL RATIO 4.1; CHOLESTEROL, TOTAL 107 mg/dL (140-239); HDL CHOL % 24 % (26-37); HDL CHOLESTEROL (DIRECT) 26 mg/dL (40-60); LDL CHOLESTEROL,CALCULATED 53 mg/dL (54-169); TOTAL PROTEIN 7.3 g/dL (6.4-8.2); TRIGLYCERIDES 142 mg/dL (50-200); VLDL CHOLESTEROL 28 mg/dL (0-25)
[2018-11-22 07:58] VITALS: BP 107/77
[2018-11-22] MEDS ORDERED: TEMPLATE NON-FORMULARY MED. (Macitentan** (Opsumit**) 10 MG) PO SCH (09:00)
[2018-11-22] MEDS ORDERED: PANTOPROZOLE 40MG TABLET PO SCH (09:00)
[2018-11-22] MEDS ORDERED: ESCITALOPRAM 10MG TABLET PO SCH (09:00)
[2018-11-22] MEDS ORDERED: BUMETANIDE 1 MG TABLET PO SCH (09:00)
[2018-11-22] MEDS: TEMPLATE NON-FORMULARY MED. (Riociguat** (Adempas**) 2.5 MG) PO SCH ×2 (09:10→15:45)
[2018-11-22] MEDS: LORazepam 0.5MG TABLET PO SCH (09:11)
[2018-11-22] MEDS: METOPROLOL TARTRATE 25 MG TABLET PO SCH (09:12)
[2018-11-22] MEDS: BUSPIRONE 10 MG TABLET PO SCH (09:12)
[2018-11-22] MEDS: NICOTINE 14MG/24 HR PATCH.TD24 TD SCH (12:30)
[2018-11-22] MEDS: TEMPLATE NON-FORMULARY MED. (Macitentan** (Opsumit**) 10 MG) HOMEMEDPO SCH (12:35)
[2018-11-22 12:55] VITALS: BP 86/58
[2018-11-22] MEDS ORDERED: BUME2TAB PO (14:19)
[2018-11-22] MEDS ORDERED: GABA300C10 PO (15:31)
[2018-11-22 15:36] VITALS: BP 101/70
== END 2018-11-22 17:03 | disposition home or self-care (01) ==
LOC: ED 07:43 → EDIP 09:53 → INTOOBSV 09:53 → 4EST 10:51 → DCLOUNGE 11-22 16:45
PROVIDERS: ADMIT Internal Medicine; ATTEND Internal Medicine
DX: M79.661 Pain in right lower leg (principal); M79.662 Pain in left lower leg; J96.10 Chronic respiratory failure, unspecified whether with hypoxia or hypercapnia; I13.0 Hypertensive heart and chronic kidney disease with heart failure and stage 1 through stage 4 chronic kidney disease, or unspecified chronic kidney disease; I50.9 Heart failure, unspecified; N18.9 Chronic kidney disease, unspecified; N17.0 Acute kidney failure with tubular necrosis; I27.21 Secondary pulmonary arterial hypertension; G47.33 Obstructive sleep apnea (adult) (pediatric); E87.6 Hypokalemia; E78.5 Hyperlipidemia, unspecified; K21.9 Gastro-esophageal reflux disease without esophagitis; E78.00 Pure hypercholesterolemia, unspecified; Z99.81 Dependence on supplemental oxygen; Z86.718 Personal history of other venous thrombosis and embolism; Z87.19 Personal history of other diseases of the digestive system; Z87.11 Personal history of peptic ulcer disease
CPT/HCPCS: 36415; 71045; 80053; 80061; 82550; 83605; 83735; 83880; 84439; 84443; 85025; 85651; 86140; 93005; 93922; 93970; 96372; 96374; 97162; 99284; G0378; J1644; J1885

== ENCOUNTER → 2018-12-13 | Outpatient (CLI) | payer MEDICAID ==
[~2018-12-13] MED LIST changes: +BUME2TAB PO; +GABA300C10 PO
== END | disposition home or self-care (01) ==
LOC: CFH 09:12
PROVIDERS: ATTEND Nurse Practitioner
DX: J32.1 Chronic frontal sinusitis (principal); J34.2 Deviated nasal septum; H70.92 Unspecified mastoiditis, left ear; G47.33 Obstructive sleep apnea (adult) (pediatric); R05 Cough
CPT/HCPCS: 70486; 71250

== ENCOUNTER 2018-12-27 04:20 | Emergency (ER) | payer MEDICAID ==
[~2018-12-27] VITALS: Ht 177.8 cm; Wt 95.0 kg
--- NOTE | 2018-12-27 04:39 | NUR ---
PT IN [facility]. PT WHEELED FROM TRIAGE TO ROOM.
--- NOTE | 2018-12-27 04:44 | NUR ---
DEONDRE NICHOLSON AT FOR PT HISTORY AND ASSESSMENT. PT INSTRUCTED TO CHANGE INTO GOWN.
[2018-12-27] MEDS ORDERED: ONDANSETRON 2MG/ML, 2ML IVPush ONE (05:00)
[2018-12-27] MEDS ORDERED: KETOROLAC 30 MG/1 ML IVPush ONE (05:00)
[2018-12-27] MEDS ORDERED: SODIUM CHLORIDE FLUSH 10ML SYR IVF ONE (05:00)
[2018-12-27] MEDS ORDERED: ONDANSETRON 2MG/ML, 2ML ONE (05:01)
[2018-12-27] MEDS ORDERED: KETOROLAC 30 MG/1 ML ONE (05:01)
[2018-12-27] MEDS ORDERED: HYDROmorphone 2 MG/ML, 1ML ONE ×2 (05:02→06:04)
[2018-12-27] MEDS: HYDROmorphone 2 MG/ML, 1ML IVPush PRN ×2 (05:07→06:07)
[2018-12-27 05:49] LABS: BASOPHILS # (AUTO) 0.03 x10^3/uL (0-0.1); BASOPHILS % (AUTO) 0 % (0-1); EOSINOPHILS # (AUTO) 0.02 x10^3/uL (0-0.4); EOSINOPHILS % (AUTO) 0 % (1-7); LYMPHOCYTES # (AUTO) 1.11 x10^3/uL (1-3.4); LYMPHOCYTES % (AUTO) 16 % (22-44); MD NO; MEAN CORPUSCULAR HEMOGLOBIN 33.2 pg (27.5-34.5); MEAN CORPUSCULAR HGB CONC 34.8 g/dL (33.2-36.2); MEAN CORPUSCULAR VOLUME 95.6 fL (81-97); MEAN PLATELET VOLUME 9.7 fL (7.4-10.4); MONOCYTES # (AUTO) 0.87 x10^3/uL (0.2-0.8); MONOCYTES % (AUTO) 12 % (2-9); NEUTROPHILS % (AUTO) 72 % (42-75); PLATELET COUNT 122 x10^3/uL (130-400); RED BLOOD COUNT 4.75 x10^6/uL (4.38-5.82); RED CELL DISTRIBUTION WIDTH 12.8 % (9.4-14.8)
[2018-12-27 06:01] LABS: ALBUMIN 3.6 g/dL (3.4-5.0); ANION GAP 11 mmol/L (5-15); CALCIUM 8.5 mg/dL (8.5-10.1); CHLORIDE 103 mmol/L (98-107)
[2018-12-27 06:07] LABS: CREATININE 1.34 mg/dL (0.7-1.3)
--- NOTE | 2018-12-27 06:09 | NUR ---
PT MEDICATED PER MAR FOR PAIN.
--- NOTE | 2018-12-27 06:37 | NUR ---
UNABLE TO DC PT AT THIS TIME. PT SATING 83% ON RA. PT PLACED BACK ON N/C AT 3L O2. PT IV REMOVED. PRIMARY RN AWARE.
[2018-12-27] MEDS ORDERED: FUROSEMIDE 40 MG/4 ML ONE (06:49)
[2018-12-27] MEDS ORDERED: FUROSEMIDE 40 MG/4 ML IV ONE (07:00)
[2018-12-27] MEDS ORDERED: FUROSEMIDE 40 MG TABLET PO SCH (07:00)
[2018-12-27] MEDS ORDERED: FUROSEMIDE 40 MG TABLET ONE (07:16)
--- NOTE | 2018-12-27 07:35 | NUR ---
RECEIVED REPORT FROM KIM ZHANG RESTING COMFORTABLE, CALL LIGHT IN REACH
[2018-12-27] MEDS ORDERED: POTASSIUM CHLORIDE 20 MEQ TAB.ER.PRT ONE (07:42)
[2018-12-27] MEDS ORDERED: POTASSIUM CHLORIDE 20 MEQ TAB.ER.PRT PO ONE (08:00)
--- NOTE | 2018-12-27 08:42 | NUR ---
PT AWAKE AND ALERT. 96% ON RA, BP 116/70 R 16. PT RECEIVED DC ORDERS AND INSTRUCTIONS BY RN. PT ESCORTED TO DC ARE BY RN
[2018-12-27 08:44] VITALS: BP 116/70
== END 2018-12-27 08:47 | disposition home or self-care (01) ==
LOC: ED 05:29
DX: M10.062 Idiopathic gout, left knee (principal); M10.061 Idiopathic gout, right knee; I11.0 Hypertensive heart disease with heart failure; I50.9 Heart failure, unspecified; E78.5 Hyperlipidemia, unspecified; E78.00 Pure hypercholesterolemia, unspecified
CPT/HCPCS: 36415; 71045; 80048; 82040; 83880; 84550; 85025; 93005; 93970; 96374; 96375; 96376; 99284; J1170; J1885; J2405

== ENCOUNTER 2019-01-29 15:52 | Emergency (ER) | payer MEDICAID ==
[~2019-01-29] VITALS: Ht 175.3 cm; Wt 91.0 kg
[2019-01-29 16:26] LABS: BASOPHILS # (AUTO) 0.03 x10^3/uL (0-0.1); BASOPHILS % (AUTO) 0 % (0-1); EOSINOPHILS # (AUTO) 0.03 x10^3/uL (0-0.4); EOSINOPHILS % (AUTO) 0 % (1-7); LYMPHOCYTES # (AUTO) 1.39 x10^3/uL (1-3.4); LYMPHOCYTES % (AUTO) 13 % (22-44); MD NO; MEAN CORPUSCULAR HEMOGLOBIN 31.8 pg (27.5-34.5); MEAN CORPUSCULAR HGB CONC 33.9 g/dL (33.2-36.2); MEAN CORPUSCULAR VOLUME 93.7 fL (81-97); MEAN PLATELET VOLUME 8.4 fL (7.4-10.4); MONOCYTES % (AUTO) 8 % (2-9); NEUTROPHILS % (AUTO) 79 % (42-75); PLATELET COUNT 175 x10^3/uL (130-400); RED CELL DISTRIBUTION WIDTH 13.2 % (9.4-14.8)
[2019-01-29 16:28] LABS: HCT (SEDRATE) 50.6 % (39.2-51.8)
--- NOTE | 2019-01-29 16:29 | NUR ---
GOVERNOR ASSEMBLER HYDRAULIC: PT TO LOBBY VIA
--- NOTE | 2019-01-29 16:33 | NUR ---
PATIENT ARRIVES TO THE ER WITH LEFT KNEE PAIN AND SWELLING THAT BEGAN TWO MONTHS AGO BUT IS GETING INCREASINGLY WORSE.
[2019-01-29 16:38] LABS: ALBUMIN 3.6 g/dL (3.4-5.0); ANION GAP 8 mmol/L (5-15); CALCIUM 8.9 mg/dL (8.5-10.1); CHLORIDE 102 mmol/L (98-107); CREATININE 1.45 mg/dL (0.7-1.3)
[2019-01-29] MEDS ORDERED: HYDROcodone/APAP 5/325 TABLET PO ONE (17:30)
[2019-01-29] MEDS ORDERED: HYDROcodone/APAP 5/325 TABLET ONE (17:35)
[2019-01-29] MEDS ORDERED: LIDOCAINE-MPF 1%, 5ML ONE (17:35)
[2019-01-29] MEDS ORDERED: LIDOCAINE-MPF 1%, 5ML INFIL ONE (18:00)
[2019-01-29] MEDS ORDERED: TRIAMCINOLONE ACETONIDE 40 MG/ML, 1ML MC ONE (18:00)
--- NOTE | 2019-01-29 18:04 | NUR ---
STAND BY ASSIST DEVEN PA IN KNEE INTERVENTIONS/DRAINING
[2019-01-29 18:25] VITALS: BP 122/78
--- NOTE | 2019-01-29 18:26 | NUR ---
DISCHARGE TEACHING DONE REGARDING FOLLOW UP CARE. SHOWS UNDERSTANDING. INSTRUCTIONS TO NOT DRIVE.
== END 2019-01-29 18:49 | disposition home or self-care (01) ==
LOC: ED 18:35
DX: M17.12 Unilateral primary osteoarthritis, left knee (principal); E78.5 Hyperlipidemia, unspecified; I11.0 Hypertensive heart disease with heart failure; I50.9 Heart failure, unspecified; Z90.49 Acquired absence of other specified parts of digestive tract
CPT/HCPCS: 20610; 36415; 80048; 82040; 83605; 84550; 85025; 85651; 86140; 87040; 99284

== ENCOUNTER 2019-05-23 10:13 | Day surgery (SDC) | payer MEDICAID ==
[~2019-05-23] VITALS: Ht 175.3 cm; Wt 92.3 kg
[~2019-05-23 10:13] MED LIST changes: +ALLO100T30 PO; -BUME2TAB PO; +BUME2TAB3 PO; +COLC0.6C PO; +FENO48TA17 PO; -FENO48TA5 PO; +LISI1TAB20 PO; -LISI1TAB7 PO
[2019-05-23 11:04] VITALS: BP 151/101
[2019-05-23] MEDS ORDERED: MIDAZOLAM 1 MG/ML, 5ML ONE (11:04)
[2019-05-23] MEDS ORDERED: FENTANYL PF 100 MCG/2ML ONE (11:04)
[2019-05-23] MEDS ORDERED: TREP1.743 INH (11:24)
[2019-05-23] MEDS ORDERED: NAPR-850 PO (11:24)
[2019-05-23 11:38] LABS: BASOPHILS # (AUTO) 0.11 x10^3/uL (0-0.1); BASOPHILS % (AUTO) 1 % (0-1); EOSINOPHILS % (AUTO) 1 % (1-7); LYMPHOCYTES # (AUTO) 2.03 x10^3/uL (1-3.4); LYMPHOCYTES % (AUTO) 23 % (22-44); MD NO; MEAN CORPUSCULAR HEMOGLOBIN 31.4 pg (27.5-34.5); MEAN CORPUSCULAR HGB CONC 33.2 g/dL (33.2-36.2); MEAN CORPUSCULAR VOLUME 94.6 fL (81-97); MEAN PLATELET VOLUME 8.3 fL (7.4-10.4); MONOCYTES # (AUTO) 0.74 x10^3/uL (0.2-0.8); MONOCYTES % (AUTO) 9 % (2-9); NEUTROPHILS # (AUTO) 5.68 x10^3/uL (1.8-6.8); NEUTROPHILS % (AUTO) 66 % (42-75); PLATELET COUNT 132 x10^3/uL (130-400); RED BLOOD COUNT 5.53 x10^6/uL (4.38-5.82); RED CELL DISTRIBUTION WIDTH 15.3 % (9.4-14.8)
[2019-05-23 11:39] LABS: INTERNATIONAL NORMALIZED RATIO 1.02 (0.93-1.1); PROTHROMBIN TIME 10.7 Seconds (9.6-11.5)
[2019-05-23 11:43] LABS: ANION GAP 9 mmol/L (5-15); CHLORIDE 105 mmol/L (98-107)
[2019-05-23 11:45] LABS: CREATININE 1.11 mg/dL (0.7-1.3)
== END 2019-05-23 14:21 | disposition home or self-care (01) ==
LOC: CACL 10:13
PROVIDERS: ATTEND Internal Medicine Cardiovascular Disease
DX: I27.0 Primary pulmonary hypertension (principal); E78.2 Mixed hyperlipidemia; G47.33 Obstructive sleep apnea (adult) (pediatric); E66.3 Overweight; Z68.31 Body mass index [BMI] 31.0-31.9, adult; Z79.01 Long term (current) use of anticoagulants; Z79.891 Long term (current) use of opiate analgesic; Z79.899 Other long term (current) drug therapy; Z88.5 Allergy status to narcotic agent
CPT/HCPCS: 36415; 80048; 85025; 85610; 85730; 93451; C1769; C1894; J2250; J3010

== ENCOUNTER 2019-06-07 13:01 | Emergency (ER) | payer MEDICAID ==
[~2019-06-07] VITALS: Ht 175.3 cm; Wt 98.7 kg
[~2019-06-07 13:01] MED LIST changes: +TREP1.743 INH
--- NOTE | 2019-06-07 13:29 | NUR ---
PT HAS CO OF SOB AND INCREASED LEG SWELLING W 10 LB WEIGHT GAIN SINCE YESTERDAY. PT HAS HX OF CHF. DENIES CP. VS STABLE. NOT IN ANY DISTRESS AT THIS TIME. BILAT LEG SWELLING 2+ MILD. FAMILY AT BEDSIDE. WAITING FOR FURTHER ORDERS
[2019-06-07 13:54] LABS: BASOPHILS # (AUTO) 0.05 x10^3/uL (0-0.1); BASOPHILS % (AUTO) 1 % (0-1); EOSINOPHILS # (AUTO) 0.02 x10^3/uL (0-0.4); EOSINOPHILS % (AUTO) 0 % (1-7); LYMPHOCYTES # (AUTO) 1.49 x10^3/uL (1-3.4); LYMPHOCYTES % (AUTO) 23 % (22-44); MD NO; MEAN CORPUSCULAR HEMOGLOBIN 30.8 pg (27.5-34.5); MEAN CORPUSCULAR HGB CONC 33.4 g/dL (33.2-36.2); MEAN CORPUSCULAR VOLUME 92.2 fL (81-97); MEAN PLATELET VOLUME 7.7 fL (7.4-10.4); MONOCYTES # (AUTO) 0.57 x10^3/uL (0.2-0.8); MONOCYTES % (AUTO) 9 % (2-9); NEUTROPHILS % (AUTO) 67 % (42-75); PLATELET COUNT 218 x10^3/uL (130-400); RED BLOOD COUNT 4.91 x10^6/uL (4.38-5.82); RED CELL DISTRIBUTION WIDTH 14.5 % (9.4-14.8)
[2019-06-07] MEDS ORDERED: KETOROLAC 30 MG/1 ML IVPush ONE (14:00)
[2019-06-07] MEDS ORDERED: SODIUM CHLORIDE FLUSH 10ML SYR IVF ONE (14:00)
--- NOTE | 2019-06-07 14:06 | NUR ---
FRUIT CUTTER APPLIED. IV ESTABLISHED. PT RESTING WATCHING TV. NO S/S OF RESP DISTRESS
[2019-06-07 14:08] LABS: ALBUMIN 3.1 g/dL (3.4-5.0); ANION GAP 8 mmol/L (5-15); CHLORIDE 107 mmol/L (98-107)
[2019-06-07 14:14] LABS: ALANINE AMINOTRANSFERASE 33 U/L (12-78); ALKALINE PHOSPHATASE 139 U/L (45-117); BILIRUBIN,TOTAL 0.8 mg/dL (0.2-1.0); CREATININE 1.53 mg/dL (0.7-1.3); TOTAL PROTEIN 7.1 g/dL (6.4-8.2); TROPONIN I < 0.015 ng/mL (0.000-0.045)
--- NOTE | 2019-06-07 15:17 | NUR ---
Patient/Caregiver given discharge instructions and they have confirmed that they understand the instructions. Patient ambulatory with steady gait.
[2019-06-07 15:18] VITALS: BP 115/70
== END 2019-06-07 15:20 | disposition home or self-care (01) ==
LOC: ED 14:19
DX: G89.29 Other chronic pain (principal); M25.562 Pain in left knee; M25.561 Pain in right knee; M79.672 Pain in left foot; M79.671 Pain in right foot; N28.9 Disorder of kidney and ureter, unspecified; I11.0 Hypertensive heart disease with heart failure; I50.9 Heart failure, unspecified; E78.5 Hyperlipidemia, unspecified; I27.20 Pulmonary hypertension, unspecified; Z90.49 Acquired absence of other specified parts of digestive tract
CPT/HCPCS: 36415; 71045; 80053; 83880; 84484; 84550; 85025; 99284

== ENCOUNTER 2019-06-10 15:07 | Inpatient (IN) | payer MEDICAID ==
[~2019-06-10] VITALS: Ht 175.3 cm; Wt 91.2 kg
--- NOTE | 2019-06-10 15:20 | NUR ---
PT BIB EMS FOR BILATERAL KNEE PAIN. PT WAS SEEN HER 2 DAYS AGO FOR SAME COMPLAINT AND WAS INFORMED NO ABNORMALITIES FOUND. PT REPORTS HIS PAIN IS WORSE AND HAS NOT IMPROVED BUT GOTTEN WORSE. PT CONNECTED TO MONITORS AND CALL LIGHT IN REACH. VSS.
[2019-06-10] MEDS ORDERED: ONDANSETRON 2MG/ML, 2ML IVPush ONE (16:00)
--- NOTE | 2019-06-10 16:30 | NUR ---
PT TO MRI
[2019-06-10 16:35] LABS: MEAN CORPUSCULAR HEMOGLOBIN 30.6 pg (27.5-34.5); MEAN CORPUSCULAR HGB CONC 33.3 g/dL (33.2-36.2); MEAN CORPUSCULAR VOLUME 91.8 fL (81-97); MEAN PLATELET VOLUME 7.7 fL (7.4-10.4); PLATELET COUNT 260 x10^3/uL (130-400); RED BLOOD COUNT 5.18 x10^6/uL (4.38-5.82); RED CELL DISTRIBUTION WIDTH 14.8 % (9.4-14.8)
[2019-06-10 16:37] LABS: ALANINE AMINOTRANSFERASE 27 U/L (12-78); ALBUMIN 3.3 g/dL (3.4-5.0); ANION GAP 4 mmol/L (5-15); CALCIUM 8.6 mg/dL (8.5-10.1); CHLORIDE 106 mmol/L (98-107); CREATININE 1.17 mg/dL (0.7-1.3)
[2019-06-10] MEDS ORDERED: HYDROmorphone 1 MG/ML, 1ML VIAL ONE (16:38)
[2019-06-10] MEDS ORDERED: ONDANSETRON 2MG/ML, 2ML ONE (16:38)
[2019-06-10 16:39] LABS: ALKALINE PHOSPHATASE 133 U/L (45-117); BILIRUBIN,TOTAL 1.1 mg/dL (0.2-1.0); TOTAL PROTEIN 7.4 g/dL (6.4-8.2)
[2019-06-10 17:26] LABS: HCT (SEDRATE) 47.5 % (39.2-51.8)
[2019-06-10 17:30] LABS: BASOPHILS # (AUTO) 0.04 x10^3/uL (0-0.1); BASOPHILS % (AUTO) 1 % (0-1); EOSINOPHILS # (AUTO) 0.07 x10^3/uL (0-0.4); EOSINOPHILS % (AUTO) 1 % (1-7); LYMPHOCYTES # (AUTO) 1.15 x10^3/uL (1-3.4); LYMPHOCYTES % (AUTO) 14 % (22-44); MONOCYTES # (AUTO) 0.78 x10^3/uL (0.2-0.8); MONOCYTES % (AUTO) 10 % (2-9); NEUTROPHILS # (AUTO) 6.16 x10^3/uL (1.8-6.8); NEUTROPHILS % (AUTO) 75 % (42-75)
[2019-06-10 17:31] LABS: MD SCAN
--- NOTE | 2019-06-10 17:32 | NUR ---
PT REMAINS AT MRI STILL
--- NOTE | 2019-06-10 17:45 | NUR ---
TASK RN: PATIENT BACK FROM MRI ATTEMPTED TO MEDICATE-HOWEVER W/OUT PIV. TO ASK PROVIDER TO CHANGE IV MEDS TO PO 92, 101/67 RATES BILATERAL KNEE PAIN RATED AT 9/10
--- NOTE | 2019-06-10 17:52 | NUR ---
TASK RN: SPOKE TO DR. PAINTER- TO ADMIN MEDS IM (NOT IV)
[2019-06-10] MEDS: HYDROmorphone 1 MG/ML, 1ML INJ IVPush PRN ×2 (17:53→18:53)
--- NOTE | 2019-06-10 18:40 | NUR ---
PATIENT ASKING TO TAKE HOME MEDS (SCHEDULED NIGHT TIME MEDS). ER PROVIDER MADE AWARE. ER PROVIDER REPORTS "PATIENT CAN TAKE HIS HOME MEDS."
--- NOTE | 2019-06-10 18:40 | NUR ---
BEDSIDE REPORT TO SAWYER Cid RN.
--- NOTE | 2019-06-10 18:52 | NUR ---
CALLED MRI @5209 TO ATTEMPT TO EXPEDITE MRI READ-NO ANSWER WITH REASSESSMENT PATIENT REPORTS PAIN MPROVED TO 12/18. ICE PACKS ALSO APPLIED TO PLACE PIV SHORTLY
--- NOTE | 2019-06-10 20:09 | NUR ---
WITH REASSESSMENT PATIENT REPORTS PAIN IMPROVED TO 5/10 STILL UNABLE TO AMBULATE PROVIDED WITH PO FLUIDS/SOLIDS-TOLERATING PLACED ON 2L NC POX [phone] (NARCOTICS)
--- NOTE | 2019-06-10 20:15 | NUR ---
provider reminded for admit order
--- NOTE | 2019-06-10 20:47 | NUR ---
dr. phillips at bedside
[2019-06-10] MEDS ORDERED: PROMETHAZINE 25 MG/ML, 1ML IM PRN (21:00)
[2019-06-10] MEDS ORDERED: ONDANSETRON ODT 4 MG PO PRN (21:00)
[2019-06-10] MEDS ORDERED: POLYETHYLENE GLYCOL 17 GM PACKET PO PRN (21:00)
[2019-06-10] MEDS ORDERED: BISACODYL 10 MG SUPP PR PRN (21:00)
[2019-06-10] MEDS ORDERED: HYDROcodone/APAP 5/325 TABLET PO PRN (21:00)
[2019-06-10] MEDS ORDERED: ONDANSETRON 2MG/ML, 2ML IVPush PRN (21:00)
[2019-06-10] MEDS ORDERED: DOCUSATE 100 MG CAPSULE PO PRN (21:00)
[2019-06-10] MEDS ORDERED: hydrALAzine 20 MG/ML, 1ML IVPush PRN (21:00)
[2019-06-10] MEDS ORDERED: ACETAMINOPHEN 325 MG TABLET PO PRN (21:00)
[2019-06-10] MEDS: TREPROSTINIL INH SCH (21:30)
[2019-06-10] MEDS ORDERED: POTASSIUM CHLORIDE 20 MEQ TAB.ER.PRT PO ONE (21:30)
[2019-06-10] MEDS ORDERED: ZOLPIDEM 10MG TABLET PO PRN (21:30)
[2019-06-10] MEDS ORDERED: NAPROXEN SODIUM 550 MG PO PRN (21:30)
[2019-06-10] MEDS ORDERED: FUROSEMIDE 40 MG/4 ML IV ONE (21:30)
[2019-06-10] MEDS: (Riociguat** (Adempas**) 2.5 MG) PO SCH (21:30)
[2019-06-10 21:31] LABS: FREE T4 (FREE THYROXINE) 1.03 ng/dL (0.76-1.46); HEMOGLOBIN A1C 5.7 % (4.2-6.3)
--- NOTE | 2019-06-10 22:19 | NUR ---
REPORT TO SEN CRAMER FOR ROOM 508
[2019-06-10 22:58] VITALS: BP 110/77
[2019-06-10] MEDS: ENOXAPARIN 40 MG/0.4 ML SQ SCH (23:33)
[2019-06-10] MEDS: ATORVASTATIN 20 MG TABLET PO SCH (23:34)
[2019-06-10] MEDS: BUMETANIDE 1 MG TABLET PO SCH (23:34)
[2019-06-10] MEDS: GABAPENTIN 100 MG CAPSULE PO SCH (23:34)
[2019-06-10] MEDS: BUSPIRONE 5 MG TABLET PO SCH (23:34)
[2019-06-10] MEDS: METOPROLOL TARTRATE 50 MG TABLET PO SCH (23:35)
[2019-06-10] MEDS: LORazepam 0.5MG TABLET PO SCH (23:35)
[2019-06-11 00:44] VITALS: BP 112/80
[2019-06-11 05:05] LABS: BASOPHILS # (AUTO) 0.02 x10^3/uL (0-0.1); BASOPHILS % (AUTO) 0 % (0-1); EOSINOPHILS % (AUTO) 0 % (1-7); LYMPHOCYTES # (AUTO) 0.58 x10^3/uL (1-3.4); LYMPHOCYTES % (AUTO) 10 % (22-44); MD NO; MEAN CORPUSCULAR HEMOGLOBIN 30.5 pg (27.5-34.5); MEAN CORPUSCULAR HGB CONC 32.5 g/dL (33.2-36.2); MEAN PLATELET VOLUME 8.1 fL (7.4-10.4); MONOCYTES # (AUTO) 0.09 x10^3/uL (0.2-0.8); MONOCYTES % (AUTO) 2 % (2-9); NEUTROPHILS % (AUTO) 88 % (42-75); PLATELET COUNT 269 x10^3/uL (130-400); RED BLOOD COUNT 4.94 x10^6/uL (4.38-5.82); RED CELL DISTRIBUTION WIDTH 14.7 % (9.4-14.8)
[2019-06-11 05:18] LABS: ALBUMIN 3.2 g/dL (3.4-5.0); ANION GAP 7 mmol/L (5-15); CALCIUM 8.6 mg/dL (8.5-10.1); CHLORIDE 102 mmol/L (98-107)
[2019-06-11 05:21] LABS: ALANINE AMINOTRANSFERASE 29 U/L (12-78); ALKALINE PHOSPHATASE 139 U/L (45-117); BILIRUBIN,TOTAL 0.9 mg/dL (0.2-1.0); CHOL/HDL RATIO 3.9; CHOLESTEROL, TOTAL 126 mg/dL (140-239); CREATININE 1.51 mg/dL (0.7-1.3); HDL CHOL % 25 % (26-37); HDL CHOLESTEROL (DIRECT) 32 mg/dL (40-60); LDL CHOLESTEROL,CALCULATED 78 mg/dL (54-169); LDL/HDL RATIO 2.4 (0.5-3.0); TOTAL PROTEIN 7.3 g/dL (6.4-8.2); TRIGLYCERIDES 80 mg/dL (50-200); VLDL CHOLESTEROL 16 mg/dL (0-25)
[2019-06-11 07:17] VITALS: BP 114/81
[2019-06-11] MEDS ORDERED: FUROSEMIDE 20 MG/2 ML IV SCH ×2 (07:30→17:00)
[2019-06-11] MEDS: BUSPIRONE 5 MG TABLET PO SCH ×2 (10:19→22:00)
[2019-06-11] MEDS: BUMETANIDE 1 MG TABLET PO SCH (10:19)
[2019-06-11] MEDS: ESCITALOPRAM 10MG TABLET PO SCH (10:19)
[2019-06-11] MEDS: ALLOPURINOL 100 MG TABLET PO SCH (10:19)
[2019-06-11] MEDS: METOPROLOL TARTRATE 50 MG TABLET PO SCH ×2 (10:20→22:00)
[2019-06-11] MEDS: PANTOPROZOLE 40MG TABLET PO SCH (10:20)
[2019-06-11] MEDS: TREPROSTINIL INH SCH ×4 (10:20→21:00)
[2019-06-11] MEDS: GABAPENTIN 100 MG CAPSULE PO SCH ×3 (10:20→22:00)
[2019-06-11] MEDS: LORazepam 0.5MG TABLET PO SCH ×2 (10:20→22:00)
[2019-06-11] MEDS: (Riociguat** (Adempas**) 2.5 MG) PO SCH ×3 (10:21→21:00)
[2019-06-11 10:27] VITALS: BP 127/76
[2019-06-11] MEDS: HYDROmorphone 2 MG/ML, 1ML IVPush PRN ×3 (10:37→23:45)
[2019-06-11] MEDS ORDERED: LIDOCAINE 1%, 10ML ONE (12:16)
[2019-06-11 15:54] VITALS: BP 111/73
[2019-06-11 20:25] VITALS: BP 121/87
[2019-06-11] MEDS: ATORVASTATIN 20 MG TABLET PO SCH (22:00)
[2019-06-11] MEDS: ENOXAPARIN 40 MG/0.4 ML SQ SCH (22:05)
[2019-06-11 23:47] VITALS: BP 110/79
[2019-06-12 03:23] VITALS: BP 112/79
[2019-06-12 05:24] LABS: ALBUMIN 3.2 g/dL (3.4-5.0); ANION GAP 9 mmol/L (5-15); CALCIUM 9.3 mg/dL (8.5-10.1); CHLORIDE 101 mmol/L (98-107); GAMMA GLUTAMYL TRANSPEPTIDASE 143 U/L (15-85)
[2019-06-12 05:27] LABS: BASOPHILS # (AUTO) 0.04 x10^3/uL (0-0.1); BASOPHILS % (AUTO) 1 % (0-1); EOSINOPHILS # (AUTO) 0.04 x10^3/uL (0-0.4); EOSINOPHILS % (AUTO) 1 % (1-7); LYMPHOCYTES # (AUTO) 2.29 x10^3/uL (1-3.4); LYMPHOCYTES % (AUTO) 28 % (22-44); MD NO; MEAN CORPUSCULAR HEMOGLOBIN 30.6 pg (27.5-34.5); MEAN CORPUSCULAR HGB CONC 33.3 g/dL (33.2-36.2); MEAN CORPUSCULAR VOLUME 91.9 fL (81-97); MONOCYTES # (AUTO) 0.62 x10^3/uL (0.2-0.8); MONOCYTES % (AUTO) 7 % (2-9); NEUTROPHILS # (AUTO) 5.33 x10^3/uL (1.8-6.8); NEUTROPHILS % (AUTO) 64 % (42-75); PLATELET COUNT 269 x10^3/uL (130-400); RED BLOOD COUNT 4.95 x10^6/uL (4.38-5.82); RED CELL DISTRIBUTION WIDTH 14.7 % (9.4-14.8)
[2019-06-12 05:28] LABS: ALANINE AMINOTRANSFERASE 26 U/L (12-78); ALKALINE PHOSPHATASE 140 U/L (45-117); BILIRUBIN,TOTAL 0.7 mg/dL (0.2-1.0); CREATININE 1.19 mg/dL (0.7-1.3); TOTAL PROTEIN 7.2 g/dL (6.4-8.2)
[2019-06-12] MEDS ORDERED: COLCHICINE 0.6 MG CAPSULE PO ONE (08:30)
[2019-06-12] MEDS: TREPROSTINIL INH SCH ×4 (09:00→20:40)
[2019-06-12] MEDS: (Riociguat** (Adempas**) 2.5 MG) PO SCH ×3 (09:00→20:40)
[2019-06-12] MEDS: LORazepam 0.5MG TABLET PO SCH ×2 (09:03→20:41)
[2019-06-12] MEDS: ALLOPURINOL 100 MG TABLET PO SCH (09:03)
[2019-06-12] MEDS: GABAPENTIN 100 MG CAPSULE PO SCH ×3 (09:03→20:36)
[2019-06-12] MEDS: BUSPIRONE 5 MG TABLET PO SCH ×2 (09:03→20:38)
[2019-06-12] MEDS: PANTOPROZOLE 40MG TABLET PO SCH (09:03)
[2019-06-12] MEDS: ESCITALOPRAM 10MG TABLET PO SCH (09:04)
[2019-06-12] MEDS: METOPROLOL TARTRATE 50 MG TABLET PO SCH ×2 (09:04→20:39)
[2019-06-12] MEDS: COLCHICINE 0.6 MG CAPSULE PO SCH (09:04)
[2019-06-12] MEDS: BUMETANIDE 1 MG TABLET PO SCH ×2 (09:05→20:39)
[2019-06-12] MEDS: HYDROmorphone 2 MG/ML, 1ML IVPush PRN ×3 (09:20→21:25)
[2019-06-12 09:59] VITALS: BP 112/79
[2019-06-12 15:59] VITALS: BP 106/74
[2019-06-12] MEDS: POTASSIUM CHLORIDE 20 MEQ TAB.ER.PRT PO SCH (16:31)
[2019-06-12] MEDS: ENOXAPARIN 40 MG/0.4 ML SQ SCH (20:36)
[2019-06-12] MEDS: ATORVASTATIN 20 MG TABLET PO SCH (20:38)
[2019-06-12 21:13] VITALS: BP 102/72
[2019-06-13 02:58] VITALS: BP 110/76
[2019-06-13 05:12] LABS: HCT (SEDRATE) 45.9 % (39.2-51.8)
[2019-06-13 05:14] LABS: ANION GAP 8 mmol/L (5-15); CALCIUM 8.7 mg/dL (8.5-10.1); CHLORIDE 101 mmol/L (98-107)
[2019-06-13 05:16] LABS: CREATININE 1.07 mg/dL (0.7-1.3)
[2019-06-13] MEDS: TREPROSTINIL INH SCH ×4 (06:00→20:20)
[2019-06-13] MEDS: HYDROmorphone 2 MG/ML, 1ML IVPush PRN ×4 (06:15→20:19)
[2019-06-13 08:00] VITALS: BP 110/75
[2019-06-13] MEDS: POTASSIUM CHLORIDE 20 MEQ TAB.ER.PRT PO SCH (08:51)
[2019-06-13] MEDS: BUMETANIDE 1 MG TABLET PO SCH ×2 (08:51→20:17)
[2019-06-13] MEDS: ESCITALOPRAM 10MG TABLET PO SCH (08:51)
[2019-06-13] MEDS: GABAPENTIN 100 MG CAPSULE PO SCH ×3 (08:51→20:17)
[2019-06-13] MEDS: BUSPIRONE 5 MG TABLET PO SCH ×2 (08:51→20:17)
[2019-06-13] MEDS: PANTOPROZOLE 40MG TABLET PO SCH (08:51)
[2019-06-13] MEDS: ALLOPURINOL 100 MG TABLET PO SCH (08:51)
[2019-06-13] MEDS: COLCHICINE 0.6 MG CAPSULE PO SCH (08:52)
[2019-06-13] MEDS: LORazepam 0.5MG TABLET PO SCH ×2 (08:52→20:20)
[2019-06-13] MEDS: METOPROLOL TARTRATE 50 MG TABLET PO SCH ×2 (08:52→20:18)
[2019-06-13] MEDS: (Riociguat** (Adempas**) 2.5 MG) PO SCH ×3 (08:57→20:20)
[2019-06-13 14:00] VITALS: BP 110/75
[2019-06-13 19:09] VITALS: BP 110/74
[2019-06-13] MEDS: ATORVASTATIN 20 MG TABLET PO SCH (20:17)
[2019-06-13] MEDS: ENOXAPARIN 40 MG/0.4 ML SQ SCH (20:17)
[2019-06-14 01:00] VITALS: BP 111/73
[2019-06-14] MEDS: HYDROmorphone 2 MG/ML, 1ML IVPush PRN ×2 (04:31→10:17)
[2019-06-14 05:03] LABS: ANION GAP 7 mmol/L (5-15); CALCIUM 8.7 mg/dL (8.5-10.1); CHLORIDE 98 mmol/L (98-107)
[2019-06-14 05:04] LABS: CREATININE 1.26 mg/dL (0.7-1.3)
[2019-06-14] MEDS: TREPROSTINIL INH SCH ×4 (06:26→20:06)
[2019-06-14] MEDS ORDERED: TRIAMCINOLONE ACETONIDE 40 MG/ML, 1ML ONE (08:56)
[2019-06-14] MEDS ORDERED: LIDOCAINE 1%, 10ML ONE (08:57)
[2019-06-14] MEDS ORDERED: BUPIVACAINE/PF 0.5% ONE (08:57)
[2019-06-14 09:05] VITALS: BP 108/72
[2019-06-14] MEDS: (Riociguat** (Adempas**) 2.5 MG) PO SCH ×3 (10:04→20:06)
[2019-06-14] MEDS: LORazepam 0.5MG TABLET PO SCH ×2 (10:04→20:05)
[2019-06-14] MEDS: METOPROLOL TARTRATE 50 MG TABLET PO SCH (10:05)
[2019-06-14] MEDS: COLCHICINE 0.6 MG CAPSULE PO SCH (10:06)
[2019-06-14] MEDS: PANTOPROZOLE 40MG TABLET PO SCH (10:06)
[2019-06-14] MEDS: BUMETANIDE 1 MG TABLET PO SCH ×2 (10:06→20:05)
[2019-06-14] MEDS: ESCITALOPRAM 10MG TABLET PO SCH (10:07)
[2019-06-14] MEDS: ALLOPURINOL 100 MG TABLET PO SCH (10:07)
[2019-06-14] MEDS: BUSPIRONE 5 MG TABLET PO SCH ×2 (10:07→20:04)
[2019-06-14] MEDS: GABAPENTIN 100 MG CAPSULE PO SCH ×3 (10:07→20:03)
[2019-06-14] MEDS ORDERED: NAPROXEN 500 MG TABLET PO PRN (10:30)
[2019-06-14 15:59] VITALS: BP 109/77
[2019-06-14 19:24] VITALS: BP 113/71
[2019-06-14] MEDS: ATORVASTATIN 20 MG TABLET PO SCH (20:03)
[2019-06-14] MEDS: ENOXAPARIN 40 MG/0.4 ML SQ SCH (20:03)
[2019-06-14] MEDS: METOPROLOL TARTRATE 25 MG TABLET PO SCH (20:04)
[2019-06-15] MEDS ORDERED: FLU VACC QS2019-20 36MOS UP/PF 0.5 ML IM-VACC ONE (05:00)
[2019-06-15 06:11] VITALS: BP 115/63
[2019-06-15] MEDS: TREPROSTINIL INH SCH ×2 (06:15→12:36)
[2019-06-15] MEDS: ESCITALOPRAM 10MG TABLET PO SCH (08:12)
[2019-06-15] MEDS: METOPROLOL TARTRATE 25 MG TABLET PO SCH (08:12)
[2019-06-15] MEDS: LORazepam 0.5MG TABLET PO SCH (08:13)
[2019-06-15] MEDS: GABAPENTIN 100 MG CAPSULE PO SCH (08:13)
[2019-06-15] MEDS: PANTOPROZOLE 40MG TABLET PO SCH (08:13)
[2019-06-15] MEDS: BUMETANIDE 1 MG TABLET PO SCH (08:13)
[2019-06-15] MEDS: BUSPIRONE 5 MG TABLET PO SCH (08:13)
[2019-06-15] MEDS: (Riociguat** (Adempas**) 2.5 MG) PO SCH (08:14)
[2019-06-15 08:15] VITALS: BP 114/80
[2019-06-15] MEDS ORDERED: NAPR-856 PO (11:39)
[2019-06-15 12:58] VITALS: BP 112/79
[2019-06-15] MEDS ORDERED: HYDR-3240 PO (13:52)
== END 2019-06-15 14:25 | disposition home or self-care (01) | DRG 351 ==
LOC: ED 15:15 → EDIP 20:37 → 5SO 22:47 → DCLOUNGE 06-15 13:37
PROVIDERS: ADMIT Internal Medicine; ATTEND Internal Medicine
PROC: 5A09357 Assistance with Respiratory Ventilation, Less than 24 Consecutive Hours, Continuous Positive Airway Pressure (ICD-10-PCS; principal; 2019-06-11)
PROC: 0S9C3ZZ Drainage of Right Knee Joint, Percutaneous Approach (ICD-10-PCS; 2019-06-11)
PROC: 5A09357 Assistance with Respiratory Ventilation, Less than 24 Consecutive Hours, Continuous Positive Airway Pressure (ICD-10-PCS; 2019-06-12)
PROC: 5A09357 Assistance with Respiratory Ventilation, Less than 24 Consecutive Hours, Continuous Positive Airway Pressure (ICD-10-PCS; 2019-06-13)
PROC: 0S9D3ZZ Drainage of Left Knee Joint, Percutaneous Approach (ICD-10-PCS; 2019-06-14)
PROC: 0S9C3ZZ Drainage of Right Knee Joint, Percutaneous Approach (ICD-10-PCS; 2019-06-14)
PROC: 5A09357 Assistance with Respiratory Ventilation, Less than 24 Consecutive Hours, Continuous Positive Airway Pressure (ICD-10-PCS; 2019-06-15)
DX: M11.261 Other chondrocalcinosis, right knee (principal); J96.10 Chronic respiratory failure, unspecified whether with hypoxia or hypercapnia; I27.29 Other secondary pulmonary hypertension; I11.0 Hypertensive heart disease with heart failure; I50.9 Heart failure, unspecified; M11.262 Other chondrocalcinosis, left knee; E78.5 Hyperlipidemia, unspecified; Z99.81 Dependence on supplemental oxygen; G47.33 Obstructive sleep apnea (adult) (pediatric); K21.9 Gastro-esophageal reflux disease without esophagitis; M25.462 Effusion, left knee; M25.461 Effusion, right knee; M71.21 Synovial cyst of popliteal space [Baker], right knee; M71.22 Synovial cyst of popliteal space [Baker], left knee; Z87.11 Personal history of peptic ulcer disease; Z82.5 Family history of asthma and other chronic lower respiratory diseases
CPT/HCPCS: 20605; 20606; 20610; 36415; 71045; 80048; 80053; 80061; 82977; 83036; 83735; 83880; 84100; 84439; 84443; 84550; 85025; 85651; 85810; 87040; 87070; 87205; 88112; 88305; 89050; 89060; 90686; 93306; 96374; 96375; G0378; J1170; J1650; J1940; J2405; J3301; J7512

== ENCOUNTER 2019-07-23 11:35 | Emergency (ER) | payer MEDICAID ==
[~2019-07-23] VITALS: Ht 175.3 cm; Wt 93.0 kg
[~2019-07-23 11:35] MED LIST changes: +FENO48TA10 PO; -FENO48TA17 PO; +NAPR-856 PO
[2019-07-23 12:30] LABS: BASOPHILS # (AUTO) 0.04 x10^3/uL (0-0.1); BASOPHILS % (AUTO) 0 % (0-1); EOSINOPHILS # (AUTO) 0.06 x10^3/uL (0-0.4); EOSINOPHILS % (AUTO) 0 % (1-7); LYMPHOCYTES # (AUTO) 1.69 x10^3/uL (1-3.4); LYMPHOCYTES % (AUTO) 12 % (22-44); MD NO; MEAN CORPUSCULAR HEMOGLOBIN 30.6 pg (27.5-34.5); MEAN CORPUSCULAR HGB CONC 33.4 g/dL (33.2-36.2); MEAN CORPUSCULAR VOLUME 91.4 fL (81-97); MONOCYTES # (AUTO) 1.32 x10^3/uL (0.2-0.8); MONOCYTES % (AUTO) 9 % (2-9); NEUTROPHILS % (AUTO) 78 % (42-75); PLATELET COUNT 140 x10^3/uL (130-400); RED BLOOD COUNT 5.65 x10^6/uL (4.38-5.82); RED CELL DISTRIBUTION WIDTH 15.8 % (9.4-14.8)
[2019-07-23 12:38] LABS: ANION GAP 6 mmol/L (5-15); CALCIUM 9.3 mg/dL (8.5-10.1); CHLORIDE 101 mmol/L (98-107); CREATININE 1.35 mg/dL (0.7-1.3)
[2019-07-23] MEDS ORDERED: KETOROLAC 30 MG/1 ML ONE ×2 (12:52)
[2019-07-23] MEDS ORDERED: OXYcodone/APAP 5/325MG TABLET ONE ×2 (12:52→14:05)
[2019-07-23] MEDS ORDERED: KETOROLAC 30 MG/1 ML IM ONE (13:00)
[2019-07-23] MEDS ORDERED: OXYcodone/APAP 5/325MG TABLET PO ONE (13:00)
[2019-07-23] MEDS ORDERED: LIDOCAINE-MPF 1%, 5ML ONE ×2 (13:28→14:02)
--- NOTE | 2019-07-23 13:54 | NUR ---
PROVIDER AT BEDSIDE FOR NEEDLE ASPIRATION OF R KNEE
--- NOTE | 2019-07-23 15:00 | NUR ---
BEDSIDE REPORT FROM JESSY RN PATIENT RESTING IN BED, REPORTS PAIN IMPROVED TO 3/10, +2 DP/PT PULSE
[2019-07-23 15:02] VITALS: BP 101/65
== END 2019-07-23 17:02 | disposition home or self-care (01) ==
LOC: ED 16:45
DX: M25.561 Pain in right knee (principal); I11.0 Hypertensive heart disease with heart failure; I50.9 Heart failure, unspecified; E11.9 Type 2 diabetes mellitus without complications; I27.20 Pulmonary hypertension, unspecified
CPT/HCPCS: 20610; 36415; 73564; 80048; 82945; 83615; 84157; 84550; 84560; 85025; 85810; 87070; 87205; 89050; 89060; 96372; 99284; J1885

== ENCOUNTER 2019-08-14 14:15 | Emergency (ER) | payer SELFPAY ==
[~2019-08-14] VITALS: Ht 175.3 cm; Wt 94.0 kg
[2019-08-14 15:19] LABS: BASOPHILS # (AUTO) 0.03 x10^3/uL (0-0.1); BASOPHILS % (AUTO) 0 % (0-1); EOSINOPHILS # (AUTO) 0.04 x10^3/uL (0-0.4); EOSINOPHILS % (AUTO) 0 % (1-7); LYMPHOCYTES # (AUTO) 1.47 x10^3/uL (1-3.4); LYMPHOCYTES % (AUTO) 13 % (22-44); MD NO; MEAN CORPUSCULAR HEMOGLOBIN 30.5 pg (27.5-34.5); MEAN CORPUSCULAR HGB CONC 33.5 g/dL (33.2-36.2); MEAN CORPUSCULAR VOLUME 90.9 fL (81-97); MONOCYTES # (AUTO) 1.01 x10^3/uL (0.2-0.8); MONOCYTES % (AUTO) 9 % (2-9); NEUTROPHILS # (AUTO) 8.76 x10^3/uL (1.8-6.8); NEUTROPHILS % (AUTO) 77 % (42-75); PLATELET COUNT 125 x10^3/uL (130-400); RED BLOOD COUNT 5.33 x10^6/uL (4.38-5.82); RED CELL DISTRIBUTION WIDTH 15.9 % (9.4-14.8)
[2019-08-14 15:27] LABS: ALBUMIN 3.6 g/dL (3.4-5.0); ANION GAP 9 mmol/L (5-15); CALCIUM 9.2 mg/dL (8.5-10.1); CHLORIDE 100 mmol/L (98-107); CREATININE 1.25 mg/dL (0.7-1.3)
[2019-08-14 15:31] LABS: TROPONIN I < 0.015 ng/mL (0.000-0.045)
--- NOTE | 2019-08-14 16:32 | NUR ---
repairer veneer sheet: Pt to ED room 19 from lobby at this time
--- NOTE | 2019-08-14 16:41 | NUR ---
FIRST CONTACT WITH PT. PT C/O LLE PAIN X SEVERAL DAYS, HX OF GOUT. FRIEND STATES "HES BEEN MORE SHORT OF BREATH THAN USUAL". PT SPEAKING IN FULL SENTENCES WO DIFFICULTY. SPO2 >90% ON RA. PWD. PT ALSO C/O RIGHT SHOULDER PAIN WELL WITH NAUSEA. PT'S AOX4. RESPS EVEN AND UNLABORED. ALL MONITORS IN PLACE. CALL LIGHT WITHIN REACH. SINUS TACHY RATE 110'S ON TOWN JUSTICE AT THIS TIME. HX OF PULMONARY HTN AND CHF. DENIES CP/SOB. PT'S GF AT BEDSIDE AT THIS TIME.
--- NOTE | 2019-08-14 17:50 | NUR ---
EDMD AT BEDSIDE TO DISCUSS POC AT THIS TIME.
--- NOTE | 2019-08-14 18:02 | NUR ---
PIV EST. NO COMPLICATIONS. PT TOLERATED WELL. NS INFUISNG AT THIS TIME.
--- NOTE | 2019-08-14 18:30 | NUR ---
PT MEDICATED PER EMAR. PT TOLERATED WELL. PT'S AOX4. RESPS EVEN AND UNLABORED.
--- NOTE | 2019-08-14 18:57 | NUR ---
REPORT GIVEN TO ZOIE CRAMER.
[2019-08-14] MEDS ORDERED: SODIUM CHLORIDE FLUSH 10ML SYR IVF ONE (19:00)
[2019-08-14] MEDS ORDERED: SODIUM CHLORIDE 0.9% 1,000ML IVBOLUS ONE (19:00)
[2019-08-14 20:02] VITALS: BP 119/70
== END 2019-08-14 20:05 | disposition home or self-care (01) ==
LOC: ED 18:28
DX: M10.062 Idiopathic gout, left knee (principal); M10.061 Idiopathic gout, right knee; M13.0 Polyarthritis, unspecified; I11.0 Hypertensive heart disease with heart failure; I50.9 Heart failure, unspecified; E11.9 Type 2 diabetes mellitus without complications; E78.5 Hyperlipidemia, unspecified; Z90.49 Acquired absence of other specified parts of digestive tract; Z88.6 Allergy status to analgesic agent
CPT/HCPCS: 36415; 71045; 73564; 80048; 82040; 83880; 84484; 84550; 85025; 99284; J7030; J7512

== ENCOUNTER 2019-08-18 12:02 | Emergency (ER) | payer MEDICAID ==
[~2019-08-18] VITALS: Ht 177.8 cm; Wt 99.3 kg
[2019-08-18 12:39] VITALS: BP 122/73
--- NOTE | 2019-08-18 12:44 | NUR ---
PT BIB BY DON. HE WAS TREATED FOR GOUT A FEW DAYS AGO AND SENT HOME WITH A RX FOR A STERIOD PACK THAT HE WAS SUPPOSED TO TAKE OVER THE COURSE OF 5 DAYS. HE TOOK ALL OF THEM AT ONCE HE MISUNDERSTOOD INSTRUCTIONS. PT IS AOX4. 97% ON RM AIR.
[2019-08-18] MEDS ORDERED: ONDANSETRON ODT 4 MG ONE (12:50)
[2019-08-18] MEDS ORDERED: MAALOX/HYOSCYAMINE/LIDOCAINE 45 ML BTL ONE (12:50)
[2019-08-18] MEDS ORDERED: MAALOX/HYOSCYAMINE/LIDOCAINE 45 ML BTL PO ONE (13:30)
[2019-08-18] MEDS ORDERED: ONDANSETRON ODT 4 MG PO ONE (13:30)
== END 2019-08-18 13:33 | disposition home or self-care (01) ==
LOC: MERGE 12:02 → ED 13:27
DX: K29.00 Acute gastritis without bleeding (principal); E78.5 Hyperlipidemia, unspecified; E11.9 Type 2 diabetes mellitus without complications; I11.0 Hypertensive heart disease with heart failure; I50.9 Heart failure, unspecified; E78.00 Pure hypercholesterolemia, unspecified; M10.9 Gout, unspecified; Z90.49 Acquired absence of other specified parts of digestive tract
CPT/HCPCS: 36415; 80047; 99283; Q0162

== ENCOUNTER 2020-01-10 16:06 | Emergency (ER) | payer MEDICAID ==
[~2020-01-10] VITALS: Ht 175.3 cm; Wt 95.5 kg
--- NOTE | 2020-01-10 16:49 | NUR ---
SOAKING TANK WORKER: PT TO ROOM FROM LOBBY VIA W/C
[2020-01-10] MEDS ORDERED: HYDROmorphone 1 MG/ML, 1ML INJ ONE (17:26)
[2020-01-10] MEDS ORDERED: HYDROmorphone 1 MG/ML, 1ML INJ IM PRN (17:30)
--- NOTE | 2020-01-10 17:30 | NUR ---
PT MEDICATED FOR PAIN PER ORDERS. AWAITING IMAGING RESULTS. CONT TO MONITOR.
--- NOTE | 2020-01-10 18:37 | NUR ---
PT OK FOR D/C PER ERMD. PT D/C'D BY MICKEY CRAMER. PT HAS ALL OWN BELONGINGS UPON D/C.
[2020-01-10 18:38] VITALS: BP 119/69
== END 2020-01-10 18:50 | disposition home or self-care (01) ==
LOC: ED 18:15
DX: S93.492A Sprain of other ligament of left ankle, initial encounter (principal); S90.02XA Contusion of left ankle, initial encounter; X50.0XXA Overexertion from strenuous movement or load, initial encounter; Y93.89 Activity, other specified; Y92.828 Other wilderness area as the place of occurrence of the external cause; Y99.8 Other external cause status
CPT/HCPCS: 73590; 73610; 96372; 99284; J1170

== ENCOUNTER → 2020-07-21 | Outpatient (CLI) | payer MEDICAID ==
[~2020-07-21] MED LIST changes: -ESCI10TA PO; +ESCI10TA5 PO
== END | disposition home or self-care (01) ==
LOC: CVU 11:55
PROVIDERS: ATTEND Physician Assistant Medical
DX: I27.0 Primary pulmonary hypertension (principal); R06.02 Shortness of breath
CPT/HCPCS: 93306; 93356